=== PATIENT | female | born 1985 | race African-American/Black ===

== ENCOUNTER 2017-06-30 14:19 | Observation (INO) ==
[2017-06-30] MEDS ORDERED: Ondansetron 4 MG/2 ML VIAL IVP ONE (14:53)
[2017-06-30] MEDS ORDERED: *HR* HYDROmorphone (PF) 1 MG/ML SYRINGE IVP ONE ×2 (14:53→15:58)
--- NOTE | 2017-06-30 14:55 | Emergency Department Note ---
Disposition Clinical Impression: Phlegmon Disposition: Admitted As Inpatient Condition: Good General Adult HPI - General Chief complaint: ED Skin/Abscess/Foreign Body Stated complaint: vaginal abscess, N/V Time Seen by Provider: 06/30/17 14:40 Source: patient Limitations: no limitations - History of Present Illness Pain Scale: 5 - Related Data Home Medications Medication Instructions Recorded Confirmed Albuterol Sulfate [Ventolin Hfa] 2 puff IH Q4H PRN 06/30/17 06/30/17 Atorvastatin [Lipitor] 40 mg PO HS 06/30/17 06/30/17 Buprenorphine HCl/Naloxone HCl 2 each SL DAILY 06/30/17 06/30/17 [Suboxone 8 mg-2 mg Sl Film] Dulaglutide [Trulicity] 0.75 mg SQ TH 06/30/17 06/30/17 Duloxetine HCl [Cymbalta] 60 mg PO BID 06/30/17 06/30/17 Insulin Degludec [Tresiba 100 unit SQ HS 06/30/17 06/30/17 Flextouch U-100] Insulin LISPRO [HumaLOG] 0 unit SQ TIDWM 06/30/17 06/30/17 Lurasidone [Latuda] 20 mg PO DAILY 06/30/17 06/30/17 Metoprolol [Lopressor] 25 mg PO BID 06/30/17 06/30/17 Prazosin HCl [Minipress] 15 mg PO HS 06/30/17 06/30/17 Quetiapine Fumarate [Seroquel] 400 mg PO HS 06/30/17 06/30/17 hydrOXYzine pamoate [HydrOXYzine 25 mg PO QID 06/30/17 06/30/17 Pamoate] Allergies Allergy/AdvReac Type Severity Reaction Status Date / Time ketorolac [From Toradol] Allergy Hives Verified 06/30/17 14:37 morphine Allergy Hives Verified 06/30/17 14:37 sulfamethoxazole Allergy Hives Verified 06/30/17 14:37 [From Bactrim] tramadol Allergy Hives Verified 06/30/17 14:37 trimethoprim [From Bactrim] Allergy Hives Verified 06/30/17 14:37 trazodone AdvReac See Verified 06/30/17 14:37 Comments Past Medical History - Past Medical History Medical history: Reports: diabetes, hyperlipidemia, hypertension Psychiatric history: Reports: anxiety, bipolar, depression, PTSD RINK RAT history: Reports: spontaneous - Social History Smoking Status: Current every day smoker Smokeless Tobacco Status: No Alcohol use: Reports: none Drug use: Reports: none Physical Exam - General Limitations: no limitations General appearance: alert, in no apparent distress Course Vital Signs Temperature 99.1 F 06/30/17 14:35 Pulse Rate 118 06/30/17 14:35 Respiratory Rate 20 06/30/17 14:35 Blood Pressure 148/90 06/30/17 14:35 O2 Sat by Pulse Oximetry 93 06/30/17 14:35 Temperature 98.2 F 06/30/17 18:42 Pulse Rate 95 06/30/17 18:42 Respiratory Rate 16 06/30/17 18:42 Blood Pressure 143/82 06/30/17 18:42 O2 Sat by Pulse Oximetry 92 06/30/17 18:42 Oxygen Delivery Oxygen Delivery Room Air Medical Decision Making - Lab Data Result diagrams: 06/30/17 15:05 06/30/17 15:05 Lab Results 06/30/17 06/30/17 06/30/17 Range/Units 15:05 15:05 15:05 WBC 11.0 (4.3-11.1) K/mcL RBC 5.42 H (3.82-4.97) M/mcL Hgb 14.9 (11.5-15.4) g/dL Hct 44.2 (35.3-44.9) % MCV 81.5 L (83.0-100.0) fL MCH 27.5 L (28.0-33.3) pg MCHC 33.7 (31.6-35.5) g/dL RDW 13.6 (11.5-14.5) % Plt Count 276 (140-400) K/mcL MPV 9.5 (9.4-12.4) fL Immature Gran % 0.4 (0-4) % Seg Neutrophils % 68.1 % Lymphocytes % 21.1 % Monocytes % 6.6 % Eosinophils % 3.4 % Basophils % 0.4 % Neutrophils # 7.5 (1.6-8.9) K/mcL Lymphocytes # 2.3 (0.6-4.6) K/mcL Monocytes # 0.7 (0.0-1.3) K/mcL Eosinophils # 0.4 (0.0-0.6) K/mcL Basophils # 0.0 (0.0-0.2) K/mcL Immature Plt Fraction 3.9 (1.1-6.1) % PT 11.5 (9.4-12.1) Seconds INR 1.1 Sodium 133 L (136-145) mEq/L Potassium 3.8 (3.5-4.5) mEq/L Chloride 95 L (98-109) mEq/L Carbon Dioxide 27 (19-29) mEq/L BUN 6 L (7-20) mg/dL Creatinine 0.72 (0.57-1.11) mg/dL Est GFR ( Amer) > 60 (> 60) Est GFR (Non-Af Amer) > 60 (> 60) BUN/Creatinine Ratio 8 (6-26) Glucose 226 H (70-99) mg/dL Calculated Osmolality 281 (280-300) Calcium 9.3 (8.6-10.8) mg/dL Total Bilirubin 0.5 (0.2-1.2) mg/dL AST 26 (5-34) Units/L ALT 25 (0-55) Units/L Alkaline Phosphatase 89 (38-126) Units/L Serum Total Protein 6.8 (6.0-8.3) g/dL Albumin 3.1 L (3.5-5.0) g/dL Globulin 3.7 H (2.4-3.5) g/dL Albumin/Globulin Ratio 0.8 L (1.1-2.2) Serum , Qual (Negative) 06/30/17 Range/Units 15:05 WBC (4.3-11.1) K/mcL RBC (3.82-4.97) M/mcL Hgb (11.5-15.4) g/dL Hct (35.3-44.9) % MCV (83.0-100.0) fL MCH (28.0-33.3) pg MCHC (31.6-35.5) g/dL RDW (11.5-14.5) % Plt Count (140-400) K/mcL MPV (9.4-12.4) fL Immature Gran % (0-4) % Seg Neutrophils % % Lymphocytes % % Monocytes % % Eosinophils % % Basophils % % Neutrophils # (1.6-8.9) K/mcL Lymphocytes # (0.6-4.6) K/mcL Monocytes # (0.0-1.3) K/mcL Eosinophils # (0.0-0.6) K/mcL Basophils # (0.0-0.2) K/mcL Immature Plt Fraction (1.1-6.1) % PT (9.4-12.1) Seconds INR Sodium (136-145) mEq/L Potassium (3.5-4.5) mEq/L Chloride (98-109) mEq/L Carbon Dioxide (19-29) mEq/L BUN (7-20) mg/dL Creatinine (0.57-1.11) mg/dL Est GFR ( Amer) (> 60) Est GFR (Non-Af Amer) (> 60) BUN/Creatinine Ratio (6-26) Glucose (70-99) mg/dL Calculated Osmolality (280-300) Calcium (8.6-10.8) mg/dL Total Bilirubin (0.2-1.2) mg/dL AST (5-34) Units/L ALT (0-55) Units/L Alkaline Phosphatase (38-126) Units/L Serum Total Protein (6.0-8.3) g/dL Albumin (3.5-5.0) g/dL Globulin (2.4-3.5) g/dL Albumin/Globulin Ratio (1.1-2.2) Serum , Qual Negative (Negative) Attestation Statement - Attestation Attestation: I examined this patient and my medical decision-making was reviewed with the Resident Physician. I agree with the documented findings, disposition and treatment plan as described except to the extent set forth below. Face to face time provided Patient complains of left labial swelling. Spontaneous drainage. History of similar symptoms requiring incision and drainage in the past. Her left labia is swollen and tender. Serosanguineous drainage present. Limited transcutaneous bedside ultrasound by the resident physician under my supervision does not show any focal fluid collections. We will obtain a CT scan for further evaluation
--- NOTE | 2017-06-30 14:57 | Emergency Department Note ---
Disposition Clinical Impression: Phlegmon Disposition: Admitted As Inpatient Condition: Good Time of Disposition: 16:38 Skin/Abscess/FB HPI Chief complaint: ED Skin/Abscess/Foreign Body Stated complaint: vaginal abscess, N/V Time Seen by Provider: 06/30/17 14:40 Source: patient Limitations: no limitations Nursing Notes Reviewed: Yes Vital Signs Reviewed: Yes HPI Narrative: Ms. Coleman, a 31yo female, presents from home for evaluation of left labial swelling. She states this is an abscess; she has had this previously with drainage in the OR and in the ED. She noticed this 3 days ago and has had subjective fever with nausea. The swollen area spontaneously started draining today. 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 HTN, HLD. Depression, anxiety, bipolar. PSH: Cholecysteomy. Operative I&D of abscess. ROS: POS: subjective fever, nausea, left labial swelling with drainage Neg: vomiting, dysuria, abdominal pain, back pain, numbness, tingling, weakness. Home Medications Medication Instructions Recorded Confirmed Albuterol Sulfate [Ventolin Hfa] 2 puff IH Q4H PRN 06/30/17 06/30/17 Atorvastatin [Lipitor] 40 mg PO HS 06/30/17 06/30/17 Buprenorphine HCl/Naloxone HCl 2 each SL DAILY 06/30/17 06/30/17 [Suboxone 8 mg-2 mg Sl Film] Dulaglutide [Trulicity] 0.75 mg SQ TH 06/30/17 06/30/17 Duloxetine HCl [Cymbalta] 60 mg PO BID 06/30/17 06/30/17 Insulin Degludec [Tresiba 100 unit SQ HS 06/30/17 06/30/17 Flextouch U-100] Insulin LISPRO [HumaLOG] 0 unit SQ TIDWM 06/30/17 06/30/17 Lurasidone [Latuda] 20 mg PO DAILY 06/30/17 06/30/17 Metoprolol [Lopressor] 25 mg PO BID 06/30/17 06/30/17 Prazosin HCl [Minipress] 15 mg PO HS 06/30/17 06/30/17 Quetiapine Fumarate [Seroquel] 400 mg PO HS 06/30/17 06/30/17 hydrOXYzine pamoate [HydrOXYzine 25 mg PO QID 06/30/17 06/30/17 Pamoate] Allergies Allergy/AdvReac Type Severity Reaction Status Date / Time ketorolac [From Toradol] Allergy Hives Verified 06/30/17 14:37 morphine Allergy Hives Verified 06/30/17 14:37 sulfamethoxazole Allergy Hives Verified 06/30/17 14:37 [From Bactrim] tramadol Allergy Hives Verified 06/30/17 14:37 trimethoprim [From Bactrim] Allergy Hives Verified 06/30/17 14:37 trazodone AdvReac See Verified 06/30/17 14:37 Comments All systems ED: reviewed and negative except as stated. 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 HEENT: No facial asymmetry. Head is normocephalic and atraumatic. The midline. Cardiovascular: Heart regular rate and rhythm without clicks, rubs, gallops, or murmurs. No JVD. PMI nondisplaced. Skin: Warm, dry. Left labia is substantially enlarged and swollen versus right , erythematous, warm, exquisitely tender, blood draining from central lesion within the swollen area. Fluctuance beneath the skin of the left labia palpated approximately 3 cm x 4 cm. Psych: Patient's affect is appropriate for situation. - General Limitations: no limitations General appearance: alert, in no apparent distress Course Course Narrative: Bedside ultrasound performed - substantial cobblestoning of the swollen left labia with areas of subcu fluid. Will CT with IV contrast. Patient is SIRS (+) on intake tachycardia and tachypnea. No clinical suspicion whatsoever of sepsis. Lab work is unremarkable. CT pelvis with IV contrast read by myself and radiology as phlegmon of the left labia. As this is non-surgical, will forgo [employer] consult at this time. Will provide IV antibiotics. I discussed the patient with the admitting hospitalist , Dr. Carney, who agrees to accept the patient. Pelvis CT 06/30/17 14:53 IMPRESSION: Superficial inflammatory process involving the left labial region as indicated in the history. There is a small phlegmonous collection within the soft tissues with minimal adjacent skin thickening at the inferior margin. D/ / Olegario Blanca MD / Olegario Blanca MD Interpreting Provider: Olegario Blanca MD Vital Signs Temperature 99.1 F 06/30/17 14:35 Pulse Rate 118 06/30/17 14:35 Respiratory Rate 20 06/30/17 14:35 Blood Pressure 148/90 06/30/17 14:35 O2 Sat by Pulse Oximetry 93 06/30/17 14:35 Temperature 98.9 F 06/30/17 16:20 Pulse Rate 91 06/30/17 16:20 Respiratory Rate 20 06/30/17 16:20 Blood Pressure 137/88 06/30/17 16:20 O2 Sat by Pulse Oximetry 97 06/30/17 16:20 Oxygen Delivery Oxygen Delivery Room Air Skin/Abscess/Foreign Body - Lab Data Result diagrams: 06/30/17 15:05 06/30/17 15:05 Lab Results 06/30/17 06/30/17 06/30/17 Range/Units 15:05 15:05 15:05 WBC 11.0 (4.3-11.1) K/mcL RBC 5.42 H (3.82-4.97) M/mcL Hgb 14.9 (11.5-15.4) g/dL Hct 44.2 (35.3-44.9) % MCV 81.5 L (83.0-100.0) fL MCH 27.5 L (28.0-33.3) pg MCHC 33.7 (31.6-35.5) g/dL RDW 13.6 (11.5-14.5) % Plt Count 276 (140-400) K/mcL MPV 9.5 (9.4-12.4) fL Immature Gran % 0.4 (0-4) % Seg Neutrophils % 68.1 % Lymphocytes % 21.1 % Monocytes % 6.6 % Eosinophils % 3.4 % Basophils % 0.4 % Neutrophils # 7.5 (1.6-8.9) K/mcL Lymphocytes # 2.3 (0.6-4.6) K/mcL Monocytes # 0.7 (0.0-1.3) K/mcL Eosinophils # 0.4 (0.0-0.6) K/mcL Basophils # 0.0 (0.0-0.2) K/mcL Immature Plt Fraction 3.9 (1.1-6.1) % PT 11.5 (9.4-12.1) Seconds INR 1.1 Sodium 133 L (136-145) mEq/L Potassium 3.8 (3.5-4.5) mEq/L Chloride 95 L (98-109) mEq/L Carbon Dioxide 27 (19-29) mEq/L BUN 6 L (7-20) mg/dL Creatinine 0.72 (0.57-1.11) mg/dL Est GFR ( Amer) > 60 (> 60) Est GFR (Non-Af Amer) > 60 (> 60) BUN/Creatinine Ratio 8 (6-26) Glucose 226 H (70-99) mg/dL Calculated Osmolality 281 (280-300) Calcium 9.3 (8.6-10.8) mg/dL Total Bilirubin 0.5 (0.2-1.2) mg/dL AST 26 (5-34) Units/L ALT 25 (0-55) Units/L Alkaline Phosphatase 89 (38-126) Units/L Serum Total Protein 6.8 (6.0-8.3) g/dL Albumin 3.1 L (3.5-5.0) g/dL Globulin 3.7 H (2.4-3.5) g/dL Albumin/Globulin Ratio 0.8 L (1.1-2.2) Serum , Qual (Negative) 06/30/17 Range/Units 15:05 WBC (4.3-11.1) K/mcL RBC (3.82-4.97) M/mcL Hgb (11.5-15.4) g/dL Hct (35.3-44.9) % MCV (83.0-100.0) fL MCH (28.0-33.3) pg MCHC (31.6-35.5) g/dL RDW (11.5-14.5) % Plt Count (140-400) K/mcL MPV (9.4-12.4) fL Immature Gran % (0-4) % Seg Neutrophils % % Lymphocytes % % Monocytes % % Eosinophils % % Basophils % % Neutrophils # (1.6-8.9) K/mcL Lymphocytes # (0.6-4.6) K/mcL Monocytes # (0.0-1.3) K/mcL Eosinophils # (0.0-0.6) K/mcL Basophils # (0.0-0.2) K/mcL Immature Plt Fraction (1.1-6.1) % PT (9.4-12.1) Seconds INR Sodium (136-145) mEq/L Potassium (3.5-4.5) mEq/L Chloride (98-109) mEq/L Carbon Dioxide (19-29) mEq/L BUN (7-20) mg/dL Creatinine (0.57-1.11) mg/dL Est GFR ( Amer) (> 60) Est GFR (Non-Af Amer) (> 60) BUN/Creatinine Ratio (6-26) Glucose (70-99) mg/dL Calculated Osmolality (280-300) Calcium (8.6-10.8) mg/dL Total Bilirubin (0.2-1.2) mg/dL AST (5-34) Units/L ALT (0-55) Units/L Alkaline Phosphatase (38-126) Units/L Serum Total Protein (6.0-8.3) g/dL Albumin (3.5-5.0) g/dL Globulin (2.4-3.5) g/dL Albumin/Globulin Ratio (1.1-2.2) Serum , Qual Negative (Negative)
[2017-06-30 15:11] LABS: Basophils % 0.4 %; Eosinophils # 0.4 K/mcL (0.0-0.6); Eosinophils % 3.4 %; Hematocrit 44.2 % (35.3-44.9); Hemoglobin 14.9 g/dL (11.5-15.4); Immature Granulocytes % 0.4 % (0-4); Immature Platelets 3.9 % (1.1-6.1); Lymphocytes # 2.3 K/mcL (0.6-4.6); Lymphocytes % 21.1 %; Mean Corpuscular HGB Conc 33.7 g/dL (31.6-35.5); Mean Corpuscular Hemoglobin 27.5 pg (28.0-33.3); Mean Corpuscular Volume 81.5 fL (83.0-100.0); Mean Platelet Volume 9.5 fL (9.4-12.4); Monocytes # 0.7 K/mcL (0.0-1.3); Monocytes % 6.6 %; Neutrophils # 7.5 K/mcL (1.6-8.9); Platelet Count 276 K/mcL (140-400); Red Blood Count 5.42 M/mcL (3.82-4.97); Red Cell Distribution Width 13.6 % (11.5-14.5); Segmented Neutrophils % 68.1 %
[2017-06-30 15:15] LABS: INR 1.1; Prothrombin Time 11.5 Seconds (9.4-12.1)
[2017-06-30 15:25] LABS: Alanine Aminotransferase 25 Units/L (0-55); Albumin 3.1 g/dL (3.5-5.0); Albumin/Globulin Ratio 0.8 (1.1-2.2); Alkaline Phosphatase 89 Units/L (38-126); Aspartate Amino Transferase 26 Units/L (5-34); BUN/Creatinine Ratio 8 (6-26); Bilirubin,Total 0.5 mg/dL (0.2-1.2); Blood Urea Nitrogen 6 mg/dL (7-20); Calcium 9.3 mg/dL (8.6-10.8); Carbon Dioxide 27 mEq/L (19-29); Chloride 95 mEq/L (98-109); Globulin 3.7 g/dL (2.4-3.5); Glucose 226 mg/dL (70-99); Osmolality,Calculated 281 (280-300); Potassium 3.8 mEq/L (3.5-4.5); Sodium 133 mEq/L (136-145); Total Protein 6.8 g/dL (6.0-8.3); eGFR For African Americans > 60 (> 60); eGFR For Non-African Americans > 60 (> 60)
[2017-06-30] MEDS ORDERED: Vancomycin 1,750 MG in D5% in Water 500 ML IVPB STA (15:54)
[2017-06-30] MEDS ORDERED: Cefepime HCl 2,000 MG in D5% in Water (Mini-Bag+) 100 ML IVPB STA (15:55)
[2017-06-30] MEDS ORDERED: MetroNIDAZOLE 500 MG/100 ML 500 MG/100 ML BAG IVPB ONE (15:55)
[2017-06-30] MEDS ORDERED: Cefepime HCl 2,000 MG in Water for inj. (sterile) 20 ML IVP ONE (16:49)
[2017-06-30] MEDS ORDERED: Vancomycin 2,000 MG in D5% in Water 250 ML IVPB SCH (17:00)
[2017-06-30] MEDS ORDERED: Cefepime HCl 1,000 MG in D5% in Water (Mini-Bag+) 100 ML IVPB SCH (18:00)
[2017-06-30] MEDS: Vancomycin 2,000 MG in D5% in Water 500 ML IVPB SCH (18:40)
--- NOTE | 2017-06-30 19:12 | Internal Med History&Physical ---
Date of Encounter: 06/30/17 Time of Encounter: 19:09 Assessment and Plan (1) Labial lesion Current visit: Yes Status: Acute Patient reported a left labial lesion approximately [address] noted focal phlegmon measuring 3.4 x 2.4 cm. 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 Does not appear to need I&D at this time. Patient does not appear toxic no elevated white count. Start cefepime 1 g IV every 12 and metronidazole 500 mg every 8 hours Dilaudid 1 mg IV push every 4 hours for pain Wound cultures CRP, hemoglobin A1c, CBC and BMP in the morning (2) Phlegmon Current visit: Yes Status: Acute see plan above. Internal Medicine - H&P: HPI Chief complaint: left labial swelling Admitted From: Home Plans for Post Hospital Care: Home History of present illness: Ms. Garcia is a 31 year old female with a PMH of diabetes hypertension and HLD. Presents today to [facility] for recurring left labial swelling. She reports approximately 1 week ago her left labia began to swell and become tender. She is reporting spontaneous drainage. She has a history of left labial swelling with MRSA infection and was treated at [facility] in the past. CT of the abdomen and pelvis revealed focal phlegmon measuring 3.4 cm x 2.4 cm with induration of the surrounding soft tissue. She was to fevers denies chills, fatigue, truncal rash or night sweats. She reports she has a monogamous long- term relationship. Past Med Surg Social Fam HX - Past Medical History Medical history: diabetes, hyperlipidemia, hypertension Psychiatric history: anxiety, bipolar, depression, PTSD - Past Surgical History Surgical History: colectomy - Social History Smoking Status: Current every day smoker Packs per day: 1 Smokeless Tobacco Status: No Alcohol use: none Drug use: none - Family History Father Hx Family Endocrine Disorder: Yes (diabetes) Mother Living Status: Age at : 62 Cause of : COPD Hx Family Respiratory Disorders: Yes (COPD) Hx Family Neurologic Disorders: Yes (Dementia) Hx Family Psychosocial Disorders: Yes (Anxiety, Depression) Internal Medicine - H&P: Meds Albuterol Sulfate [Ventolin Hfa] 2 puff IH Q4H PRN 06/30/17 [History] Atorvastatin [Lipitor] 40 mg PO HS 06/30/17 [History] Buprenorphine HCl/Naloxone HCl [Suboxone 8 mg-2 mg Sl Film] 2 each SL DAILY 01/09 [History] Dulaglutide [Trulicity] 0.75 mg SQ TH 06/30/17 [History] Duloxetine HCl [Cymbalta] 60 mg PO BID 06/30/17 [History] Insulin Degludec [Tresiba Flextouch U-100] 100 unit SQ HS 06/30/17 [History] Insulin LISPRO [HumaLOG] 0 unit SQ TIDWM 06/30/17 [History] Lurasidone [Latuda] 20 mg PO DAILY 06/30/17 [History] Metoprolol [Lopressor] 25 mg PO BID 06/30/17 [History] Prazosin HCl [Minipress] 15 mg PO HS 06/30/17 [History] Quetiapine Fumarate [Seroquel] 400 mg PO HS 06/30/17 [History] hydrOXYzine pamoate [HydrOXYzine Pamoate] 25 mg PO QID 06/30/17 [History] 3 Allergy/AdvReac Type Severity Reaction Status Date / Time ketorolac [From Toradol] Allergy Hives Verified 06/30/17 14:37 morphine Allergy Hives Verified 06/30/17 14:37 sulfamethoxazole Allergy Hives Verified 06/30/17 14:37 [From Bactrim] tramadol Allergy Hives Verified 06/30/17 14:37 trimethoprim [From Bactrim] Allergy Hives Verified 06/30/17 14:37 trazodone AdvReac See Verified 06/30/17 14:37 Comments All Systems PM: A 10-system review of systems was performed and is negative for pertinent findings except as documented above in the HPI. - Constitutional Constitutional: no chills, no fatigue, no fever(s), no night sweats, no weakness , no weight loss - EENT Eyes: no change in vision, no discharge, no pain, no photophobia Ears: no ear discharge, no ear pain, no tinnitus Nose, mouth and throat: no dysphagia, no nasal discharge, no neck pain, no sore throat - Cardiovascular Cardiovascular ROS IM: no chest pain, no diaphoresis, no dyspnea, no lightheadedness, no palpitations, no syncope - Respiratory Respiratory: no cough, no dyspnea, no wheezing, no excessive phlegm production - Gastrointestinal Gastrointestinal: no abdominal pain, no diarrhea, no hematemesis, no hematochezia, no melena, no nausea, no vomiting - Genitourinary Genitourinary: as per HPI, genital lesions, pelvic pain - Musculoskeletal Musculoskeletal ROS IM: no numbness, no tingling - Integumentary Integumentary IM: no rash, no unusual bruising - Neurological Neurological ROS: no confusion, no convulsions, no focal weakness, no numbness, no tingling, no tremor(s) - Hematologic/Lymphatic Hematologic/Lymphatic: no easy bruising - Constitutional Vitals: Temp Pulse Resp BP Pulse Ox 98.2 F 95 16 143/82 92 06/30/17 18:42 06/30/17 18:42 06/30/17 18:42 06/30/17 18:42 06/30/17 18:42 - Neck Neck exam general surgery: Present: supple, trachea midline. Absent: lymphadenopathy - Respiratory Respiratory exam: Present: CTAB. Absent: accessory muscle use, rales, rhonchi, wheezes - Cardiovascular Cardiovascular exam: Present: RRR, +S1, +S2. Absent: diastolic murmur, gallop, rubs, systolic murmur - GI/Abdominal GI/Abdominal exam: Present: normal bowel sounds, soft, no peritoneal signs. Absent: distended, tenderness - External exam: Present: lesions, swelling Additional comments: Patient has a lesion on left lateral labia with clear drainage. Lesion superficial skin loss, mildly erythematous and tender to palpation - Extremities Exam Extremities exam: Present: warm, radial pulses palpable and symmetrical. Absent : calf tenderness, cyanotic, pedal edema Internal Med - H&P Results - Labs CBC & Chem 7: 06/30/17 15:05 06/30/17 15:05 - Diagnostic Studies CT scan - abdomen Status: image reviewed by me Additional comments: CT of abdomen and pelvis reveals left labial wound measuring 3.42.4 cm. Also noted is induration and surrounding soft tissue
[2017-06-30] MEDS ORDERED: INSULIN DEGLUDEC 100 UNIT SQ SCH (21:00)
[2017-06-30] MEDS: *HR* HYDROmorphone (PF) 1 MG/ML SYRINGE IVP PRN (21:08)
[2017-06-30] MEDS: *HR* Heparin 5,000 UNIT/ML VIAL SQ SCH (21:08)
[2017-06-30] MEDS ORDERED: Insulin LISPRO 300 UNITS/3 ML VIAL SQ SCH (22:00)
[2017-06-30] MEDS: Insulin LISPRO 300 UNITS/3 ML VIAL SQ SCH (22:43)
[2017-06-30] MEDS ORDERED: Ibuprofen 400 MG TABLET PO PRN (23:51)
[2017-07-01] MEDS: MetroNIDAZOLE 500 MG/100 ML 500 MG/100 ML BAG IVPB SCH ×3 (00:23→15:34)
[2017-07-01] MEDS: Insulin LISPRO 300 UNITS/3 ML VIAL SQ SCH ×5 (00:45→20:52)
[2017-07-01] MEDS: *HR* HYDROmorphone (PF) 1 MG/ML SYRINGE IVP PRN ×5 (01:34→20:39)
[2017-07-01 04:06] LABS: Basophils % 0.3 %; Eosinophils # 0.4 K/mcL (0.0-0.6); Eosinophils % 3.7 %; Hematocrit 43.3 % (35.3-44.9); Hemoglobin 14.3 g/dL (11.5-15.4); Immature Granulocytes % 0.2 % (0-4); Immature Platelets 4.6 % (1.1-6.1); Lymphocytes # 2.5 K/mcL (0.6-4.6); Lymphocytes % 25.1 %; Mean Corpuscular Volume 81.7 fL (83.0-100.0); Mean Platelet Volume 10.7 fL (9.4-12.4); Monocytes # 0.8 K/mcL (0.0-1.3); Monocytes % 8.2 %; Neutrophils # 6.3 K/mcL (1.6-8.9); Platelet Count 250 K/mcL (140-400); Red Cell Distribution Width 13.9 % (11.5-14.5); Segmented Neutrophils % 62.5 %
[2017-07-01 04:17] LABS: BUN/Creatinine Ratio 11 (6-26); Blood Urea Nitrogen 7 mg/dL (7-20); C-Reactive Protein 39 mg/L (Less than 5); Carbon Dioxide 22 mEq/L (19-29); Chloride 98 mEq/L (98-109); Glucose 229 mg/dL (70-99); Magnesium 1.3 mg/dL (1.6-2.6); Osmolality,Calculated 281 (280-300); Sodium 133 mEq/L (136-145); eGFR For African Americans > 60 (> 60); eGFR For Non-African Americans > 60 (> 60)
[2017-07-01 04:19] LABS: Potassium 4.1 mEq/L (3.5-4.5)
[2017-07-01 04:23] LABS: Hemoglobin A1C 11.2 %
[2017-07-01] MEDS: Vancomycin 2,000 MG in D5% in Water 500 ML IVPB SCH ×2 (04:37→16:38)
[2017-07-01] MEDS: Cefepime HCl 1,000 MG in Water for inj. (sterile) 10 ML IVP SCH ×2 (06:35→20:40)
[2017-07-01] MEDS: *HR* Heparin 5,000 UNIT/ML VIAL SQ SCH ×3 (06:35→20:39)
[2017-07-01] MEDS: Famotidine 20 MG/2 ML VIAL IVP SCH (08:41)
[2017-07-01] MEDS ORDERED: Lidocaine 1% 20 ML MDV INFILT ONE (14:37)
--- NOTE | 2017-07-01 14:55 | General Surgery Consult Note ---
<Kristen Adames Efrain - Last Filed: 07/01/17 14:49> Date of Encounter: 07/01/17 Time of Encounter: 14:45 Assessment and Plan (1) Left genital labial abscess Current Visit: Yes Status: Acute Plan for I&D of left labial abscess in the next 24 hours IV antibiotics- currently on cefepime, vancomycin, flagyl Cultures- gram stain, aerobic, anaerobic cultures Supportive care and pain control Daily wound care (2) Morbid obesity Current Visit: Yes Status: Chronic (3) Diabetes mellitus type 2, uncontrolled, with complications Current Visit: Yes Status: Chronic HgbA1C is 11.2 Management per hospitalist Continue insulin treatment at this time Qualifiers: Diabetes mellitus mcfp insulin use: unspecified mcfp insulin use status Qualified Code(s): E11.8 - Type 2 diabetes mellitus with unspecified complications; E11.65 - Type 2 diabetes mellitus with hyperglycemia; E11.65 - Type 2 diabetes mellitus with hyperglycemia; E11.65 - Type 2 diabetes mellitus with hyperglycemia; E11.65 - Type 2 diabetes mellitus with hyperglycemia (4) Tobacco abuse Current Visit: Yes Status: Chronic Smoking cessation education (5) GERD (gastroesophageal reflux disease) Current Visit: Yes Status: Chronic PPI therapy daily Qualifiers: Esophagitis presence: esophagitis presence not specified Qualified Code(s) : K21.9 - Gastro-esophageal reflux disease without esophagitis History of Present Illness Consult date: 07/01/17 Reason for consult: other Requesting physician: Duyen Harrison History of present illness: Ms. Coleman is a morbidly obese patient who presented to the ED with complaints of a left labial abscess. She states that the area became tender 1 week ago. She states that it has continued to progress and swell. She reports increasing tenderness. She has attempted warm compresses with no relief. She has not had any antibiotics. She states that she has had multiple areas similar to this in the past. They have tested positive for MRSA in the past. She denies any fevers or chills. She has had a CT scan which shows evidence of a left labial abscess and cellulitis. We have been asked to see and evaluate the patient for recommendations. Past Med Surg Social Fam HX - Past Medical History Source: patient, old records reviewed Medical history: diabetes, GERD, hyperlipidemia, hypertension, other (morbid obesity; MRSA; chronic pancreatitis, JENY, PCOS, DDD) Psychiatric history: anxiety, bipolar, depression, PTSD - Past Surgical History Surgical History: cholecystectomy, orthopedic, other (right ankle surgery), other (liver biopsy, I&D of previous abscesses, T&A, ear tubes) - Social History Smoking Status: Current every day smoker Packs per day: 1 Smokeless Tobacco Status: No Alcohol use: none Drug use: none Current living situation: Home - Independent Activity Level: Independent ambulation - Family History Father Hx Family Endocrine Disorder: Yes (diabetes) Mother Living Status: Age at : 62 Cause of : COPD Hx Family Respiratory Disorders: Yes (COPD) Hx Family Neurologic Disorders: Yes (Dementia) Hx Family Psychosocial Disorders: Yes (Anxiety, Depression) Medications and Allergies Albuterol Sulfate [Ventolin Hfa] 2 puff IH Q4H PRN 06/30/17 [History] Atorvastatin [Lipitor] 40 mg PO HS 06/30/17 [History] Buprenorphine HCl/Naloxone HCl [Suboxone 8 mg-2 mg Sl Film] 2 each SL DAILY 01/09 [History] Dulaglutide [Trulicity] 0.75 mg SQ TH 06/30/17 [History] Duloxetine HCl [Cymbalta] 60 mg PO BID 06/30/17 [History] Insulin Degludec [Tresiba Flextouch U-100] 100 unit SQ HS 06/30/17 [History] Insulin LISPRO [HumaLOG] 0 unit SQ TIDWM 06/30/17 [History] Lurasidone [Latuda] 20 mg PO DAILY 06/30/17 [History] Metoprolol [Lopressor] 25 mg PO BID 06/30/17 [History] Prazosin HCl [Minipress] 15 mg PO HS 06/30/17 [History] Quetiapine Fumarate [Seroquel] 400 mg PO HS 06/30/17 [History] hydrOXYzine pamoate [HydrOXYzine Pamoate] 25 mg PO QID 06/30/17 [History] 3 Allergy/AdvReac Type Severity Reaction Status Date / Time ketorolac [From Toradol] Allergy Hives Verified 06/30/17 14:37 morphine Allergy Hives Verified 06/30/17 14:37 sulfamethoxazole Allergy Hives Verified 06/30/17 14:37 [From Bactrim] tramadol Allergy Hives Verified 06/30/17 14:37 trimethoprim [From Bactrim] Allergy Hives Verified 06/30/17 14:37 trazodone AdvReac See Verified 06/30/17 14:37 Comments Review of Systems All systems PM: reviewed and no additional remarkable complaints except as stated (focused and as located in the HPI) All systems PM: A 10-system review of systems was performed and is negative for pertinent findings except as documented above in the HPI. General Surgery Exam Initial Vital Signs Temp Pulse Resp BP Pulse Ox 99.1 F 118 20 148/90 93 06/30/17 14:35 06/30/17 14:35 06/30/17 14:35 06/30/17 14:35 06/30/17 14:35 - General physical appearance well developed, well nourished, no distress, chronically ill, obese (morbidly with BMI of 69) - Eyes normal ocular movement - ENT normal mucosa, atraumatic, normocephalic - Neck trachea midline - Respiratory normal respiratory effort, clear to auscultation - Cardiovascular Cardiovascular exam: Present: RRR - Abdomen Abdomen general surgery: Present: bowel sounds present, soft, non tender - Genitourinary Present: other (left labial abscess and cellulitis noted, no active drainage, tender to examination) - Integumentary Integumentary general surgery: Present: warm and dry - Neurologic Present: CN 2-12 grossly intact - Psychiatric Psychiatric general surgery: Present: appropriate, oriented to person, oriented to place, oriented to time, speech is normal, memory intact Exam Initial Vital Signs Temp Pulse Resp BP Pulse Ox 99.1 F 118 20 148/90 93 06/30/17 14:35 06/30/17 14:35 06/30/17 14:35 06/30/17 14:35 06/30/17 14:35 Results - Labs 07/01/17 03:50 07/01/17 03:50 Abnormal lab results RBC 5.30 M/mcL (3.82-4.97) H 07/01/17 03:50 MCV 81.7 fL (83.0-100.0) L 07/01/17 03:50 MCH 27.0 pg (28.0-33.3) L 07/01/17 03:50 Sodium 133 mEq/L (136-145) L 07/01/17 03:50 Glucose 229 mg/dL (70-99) H 07/01/17 03:50 POC Glucose 193 (58-89) H 06/30/17 22:40 Hemoglobin A1c 11.2 % (-5.6) H 07/01/17 03:50 Magnesium 1.3 mg/dL (1.6-2.6) L 07/01/17 03:50 C-Reactive Protein 39 mg/L (Less than 5) H 07/01/17 03:50 Albumin 3.1 g/dL (3.5-5.0) L 06/30/17 15:05 Globulin 3.7 g/dL (2.4-3.5) H 06/30/17 15:05 Albumin/Globulin Ratio 0.8 (1.1-2.2) L 06/30/17 15:05 Diabetes panel 07/01/17 07/01/17 Range/Units 03:50 03:50 Sodium 133 L (136-145) mEq/L Potassium 4.1 (3.5-4.5) mEq/L Chloride 98 (98-109) mEq/L Carbon Dioxide 22 (19-29) mEq/L BUN 7 (7-20) mg/dL Creatinine 0.66 (0.57-1.11) mg/dL Glucose 229 H (70-99) mg/dL Hemoglobin A1c 11.2 H ( - 5.6) % Calcium 9.0 (8.6-10.8) mg/dL Calcium panel 07/01/17 Range/Units 03:50 Calcium 9.0 (8.6-10.8) mg/dL Pituitary panel 07/01/17 Range/Units 03:50 Sodium 133 L (136-145) mEq/L Potassium 4.1 (3.5-4.5) mEq/L Chloride 98 (98-109) mEq/L Carbon Dioxide 22 (19-29) mEq/L BUN 7 (7-20) mg/dL Creatinine 0.66 (0.57-1.11) mg/dL Glucose 229 H (70-99) mg/dL Calcium 9.0 (8.6-10.8) mg/dL Adrenal panel 07/01/17 Range/Units 03:50 Sodium 133 L (136-145) mEq/L Potassium 4.1 (3.5-4.5) mEq/L Chloride 98 (98-109) mEq/L Carbon Dioxide 22 (19-29) mEq/L BUN 7 (7-20) mg/dL Creatinine 0.66 (0.57-1.11) mg/dL Glucose 229 H (70-99) mg/dL Calcium 9.0 (8.6-10.8) mg/dL All other labs normal. - Imaging Additional studies: Pelvis CT 06/30/17 14:53 IMPRESSION: Superficial inflammatory process involving the left labial region as indicated in the history. There is a small phlegmonous collection within the soft tissues with minimal adjacent skin thickening at the inferior margin. D/ / Olegario Blanca MD / Olegario Blanca MD Interpreting Provider: Olegario Blanca MD Consult Discharge Plan - Plan Referrals: Charlie Dennis DO [Primary Care Provider] - - Attending Attestation For this encounter, I have reviewed the MEDICAL RECEPTIONIST MEDICAL ASSISTANT or PA documentation, treatment plan, and medical decision making; and I have had face to face time with this patient. <Ever Winkler - Last Filed: 07/01/17 17:37> Date of Encounter: 07/01/17 Review of Systems All systems PM: A 10-system review of systems was performed and is negative for pertinent findings except as documented above in the HPI. General Surgery Exam Initial Vital Signs Temp Pulse Resp BP Pulse Ox 99.1 F 118 20 148/90 93 06/30/17 14:35 06/30/17 14:35 06/30/17 14:35 06/30/17 14:35 06/30/17 14:35 Exam Initial Vital Signs Temp Pulse Resp BP Pulse Ox 99.1 F 118 20 148/90 93 06/30/17 14:35 06/30/17 14:35 06/30/17 14:35 06/30/17 14:35 06/30/17 14:35 Results - Labs 07/01/17 03:50 07/01/17 03:50 Abnormal lab results RBC 5.30 M/mcL (3.82-4.97) H 07/01/17 03:50 MCV 81.7 fL (83.0-100.0) L 07/01/17 03:50 MCH 27.0 pg (28.0-33.3) L 07/01/17 03:50 Sodium 133 mEq/L (136-145) L 07/01/17 03:50 Glucose 229 mg/dL (70-99) H 07/01/17 03:50 POC Glucose 193 (58-89) H 06/30/17 22:40 Hemoglobin A1c 11.2 % (-5.6) H 07/01/17 03:50 Magnesium 1.3 mg/dL (1.6-2.6) L 07/01/17 03:50 C-Reactive Protein 39 mg/L (Less than 5) H 07/01/17 03:50 Albumin 3.1 g/dL (3.5-5.0) L 06/30/17 15:05 Globulin 3.7 g/dL (2.4-3.5) H 06/30/17 15:05 Albumin/Globulin Ratio 0.8 (1.1-2.2) L 06/30/17 15:05 Diabetes panel 07/01/17 07/01/17 Range/Units 03:50 03:50 Sodium 133 L (136-145) mEq/L Potassium 4.1 (3.5-4.5) mEq/L Chloride 98 (98-109) mEq/L Carbon Dioxide 22 (19-29) mEq/L BUN 7 (7-20) mg/dL Creatinine 0.66 (0.57-1.11) mg/dL Glucose 229 H (70-99) mg/dL Hemoglobin A1c 11.2 H ( - 5.6) % Calcium 9.0 (8.6-10.8) mg/dL Calcium panel 07/01/17 Range/Units 03:50 Calcium 9.0 (8.6-10.8) mg/dL Pituitary panel 07/01/17 Range/Units 03:50 Sodium 133 L (136-145) mEq/L Potassium 4.1 (3.5-4.5) mEq/L Chloride 98 (98-109) mEq/L Carbon Dioxide 22 (19-29) mEq/L BUN 7 (7-20) mg/dL Creatinine 0.66 (0.57-1.11) mg/dL Glucose 229 H (70-99) mg/dL Calcium 9.0 (8.6-10.8) mg/dL Adrenal panel 07/01/17 Range/Units 03:50 Sodium 133 L (136-145) mEq/L Potassium 4.1 (3.5-4.5) mEq/L Chloride 98 (98-109) mEq/L Carbon Dioxide 22 (19-29) mEq/L BUN 7 (7-20) mg/dL Creatinine 0.66 (0.57-1.11) mg/dL Glucose 229 H (70-99) mg/dL Calcium 9.0 (8.6-10.8) mg/dL All other labs normal. - Attending Attestation The patient is seen and evaluated. Care plan was discussed the clinical nurse practitioner. Incision and drainage is performed on the labia. A large amount of material is drained. Differential diagnosis includes recurrent Bartholin's cyst versus recurrent abscess. Ever Winkler MD FACS
[2017-07-01] MEDS ORDERED: *HR* HYDROmorphone (PF) 1 MG/ML SYRINGE IVP ONE (16:23)
--- NOTE | 2017-07-01 16:24 | General Surgery Procedure Note ---
Date of procedure: 07/01/17 Pre-op diagnosis: Left labial abscess Post-op diagnosis: same Procedure: After informed consent was obtained and timeout completed, the patient's left labia was prepped and draped. The area was localized with 15 ML's of 1% lidocaine. After achieving appropriate localization, a 3 cm incision was made over the most fluctuaant area using a size 11 blade. There was immediate return of purulent drainage. The cavity was further opened and decompressed using hemostats. Gram stain, aerobic, and anaerobic cultures were obtained. The cavity was flushed using 20 MLs of saline and then packed with 1/4 inch iodoform gauze and covered with a dry dressing. Complications: None Anesthesia: local (2% lidocaine) Surgeon: Kristen Adames Estimated blood loss (cc): 2 Pathology: other (Gram stain, aerobic culture, anaerobic cultures) Condition: stable Disposition: no change
--- NOTE | 2017-07-01 16:35 | Internal Med Progress Note ---
Date of Encounter: 07/01/17 Time of Encounter: 16:31 - Assessment and plan (1) Left genital labial abscess Current Visit: Yes Status: Acute Assessment and plan: Kaitlyn Coleman is a 81-year-old female with past medical history morbid obesity, diabetes and recurrent labial abscess who presented to [facility] on 06/30/2017 with complaints of left labia pain and swelling. She was found to have recurrent abscess and was placed in observation status for other workup and treatment. 1. Left labial abscess: Recurrent. Pelvis CT with small left labail phlegmonous collection. WBC 10K, afebrile. S/p I&D on 07/01/17 per General Surgery. Cx's pending. Continue IV Vanco, Flagyl, cefepime. Narrow according to cultures. Local wound care 2. Uncontrolled diabetes: Hgb A1c 11.2%. Secondary to obesity and dietary compliance. SSI. Monitor blood sugar and titrate PRN 3. HTN: per hx. BP controlled. Continue home BP medication. Monitor BP and titrate PRN 4. DVT prophylaxis: Heparin (2) Diabetes mellitus type 2, uncontrolled, with complications Current Visit: Yes Status: Chronic Qualifiers: Diabetes mellitus overlock elastic attacher insulin use: unspecified overlock elastic attacher insulin use status Qualified Code(s): E11.8 - Type 2 diabetes mellitus with unspecified complications; E11.65 - Type 2 diabetes mellitus with hyperglycemia; E11.65 - Type 2 diabetes mellitus with hyperglycemia; E11.65 - Type 2 diabetes mellitus with hyperglycemia; E11.65 - Type 2 diabetes mellitus with hyperglycemia (3) Morbid obesity Current Visit: Yes Status: Chronic - Subjective Interval history: Seen and examined at bedside. Patient is new to me, information obtained from chart review and patient report. Patient significant amount pain, says she feels like abscess to be lanced. She does have history of labialis of the past requiring long-term IV ATB. - Constitutional Vitals: Temp Pulse Resp BP Pulse Ox 98.3 F 89 16 121/80 96 07/01/17 16:27 07/01/17 16:27 07/01/17 16:27 07/01/17 16:27 07/01/17 16:27 General appearance: Present: A&O X 3, morbidly obese - Head Head exam: Present: atraumatic, normocephalic - Eye Eye exam: Present: PERRL, conjuntiva pink, sclera anicteric Pupils: Present: PERRL - Neck Neck exam general surgery: Present: supple, trachea midline. Absent: lymphadenopathy - Respiratory Respiratory exam: Present: CTAB. Absent: accessory muscle use, rales, rhonchi, wheezes - Cardiovascular Cardiovascular exam: Present: RRR, +S1, +S2. Absent: diastolic murmur, gallop, rubs, systolic murmur - GI/Abdominal GI/Abdominal exam: Present: normal bowel sounds, soft, no peritoneal signs. Absent: distended, tenderness - Expanded Exam Female exam: Present: vaginal laceration (Left labial swelling with distal area of drainage) - Extremities Exam Extremities exam: Present: warm, radial pulses palpable and symmetrical. Absent : calf tenderness, cyanotic, pedal edema - Neurological Exam Neurological exam: Present: CN II-XII intact, oriented X3, no focal deficits. Absent: pronater drift, facial droop, speech deficit - Skin Skin exam: Present: dry, intact Internal Medicine: Result - Labs CBC & Chem 7: 07/01/17 03:50 07/01/17 03:50 Labs: Short CBC 07/01/17 Range/Units 03:50 WBC 10.1 (4.3-11.1) K/mcL Hgb 14.3 (11.5-15.4) g/dL Hct 43.3 (35.3-44.9) % Plt Count 250 (140-400) K/mcL Neutrophils # 6.3 (1.6-8.9) K/mcL BMP 07/01/17 03:50 Sodium 133 L Potassium 4.1 Chloride 98 Carbon Dioxide 22 BUN 7 Creatinine 0.66 Glucose 229 H Calcium 9.0 - ABG Interpretation ABG results: PT/INR, D-dimer PT 11.5 Seconds (9.4-12.1) 06/30/17 15:05 Consult Discharge Plan - Plan Referrals: Charlie Dennis DO [Primary Care Provider] -
--- NOTE | 2017-07-01 17:59 | Event Note ---
Date of Encounter: 07/01/17 Time of Encounter: 17:54
[2017-07-02] MEDS: MetroNIDAZOLE 500 MG/100 ML 500 MG/100 ML BAG IVPB SCH ×2 (01:13→10:35)
[2017-07-02] MEDS: *HR* HYDROmorphone (PF) 1 MG/ML SYRINGE IVP PRN ×2 (01:14→05:40)
[2017-07-02 04:13] LABS: Hematocrit 43.3 % (35.3-44.9); Hemoglobin 13.9 g/dL (11.5-15.4); Mean Corpuscular HGB Conc 32.1 g/dL (31.6-35.5); Mean Corpuscular Hemoglobin 26.7 pg (28.0-33.3); Mean Corpuscular Volume 83.3 fL (83.0-100.0); Mean Platelet Volume 9.9 fL (9.4-12.4); Platelet Count 262 K/mcL (140-400); Red Cell Distribution Width 13.4 % (11.5-14.5)
[2017-07-02 04:30] LABS: BUN/Creatinine Ratio 13 (6-26); Blood Urea Nitrogen 9 mg/dL (7-20); Calcium 8.9 mg/dL (8.6-10.8); Carbon Dioxide 28 mEq/L (19-29); Chloride 98 mEq/L (98-109); Glucose 225 mg/dL (70-99); Osmolality,Calculated 288 (280-300); Potassium 4.1 mEq/L (3.5-4.5); Sodium 136 mEq/L (136-145); eGFR For African Americans > 60 (> 60); eGFR For Non-African Americans > 60 (> 60)
[2017-07-02] MEDS: Cefepime HCl 1,000 MG in Water for inj. (sterile) 10 ML IVP SCH (05:40)
[2017-07-02] MEDS: *HR* Heparin 5,000 UNIT/ML VIAL SQ SCH (05:41)
--- NOTE | 2017-07-02 09:13 | Discharge Summary ---
<Kristen Adames - Last Filed: 07/02/17 11:25> Date of Encounter: 07/02/17 - Discharge Diagnosis (1) Left genital labial abscess Status: Acute (2) Morbid obesity Status: Chronic (3) Diabetes mellitus type 2, uncontrolled, with complications Status: Chronic Qualifiers: Diabetes mellitus shelter insulin use: unspecified shelter insulin use status Qualified Code(s): E11.8 - Type 2 diabetes mellitus with unspecified complications; E11.65 - Type 2 diabetes mellitus with hyperglycemia; E11.65 - Type 2 diabetes mellitus with hyperglycemia; E11.65 - Type 2 diabetes mellitus with hyperglycemia; E11.65 - Type 2 diabetes mellitus with hyperglycemia; Z79.4 - parts counterman (current) use of insulin; Z79.4 - parts counterman (current) use of insulin ; Z79.4 - half-way (current) use of insulin; Z79.4 - parts counterman (current) use of insulin (4) Tobacco abuse Status: Chronic (5) GERD (gastroesophageal reflux disease) Status: Chronic Qualifiers: Esophagitis presence: esophagitis presence not specified Qualified Code(s) : K21.9 - Gastro-esophageal reflux disease without esophagitis - Discharge Medications Prescriptions: OxyCODONE Immed Rel [Roxicodone 5 MG] 5 mg PO Q6HR PRN #28 tablet PRN Reason: Pain Doxycycline 100 mg PO BID #20 capsule levoFLOXacin [Levaquin] 500 mg PO DAILY #10 tablet Home Medications: Albuterol Sulfate [Ventolin Hfa] 2 puff IH Q4H PRN 06/30/17 [History] Atorvastatin [Lipitor] 40 mg PO HS 06/30/17 [History] Buprenorphine HCl/Naloxone HCl [Suboxone 8 mg-2 mg Sl Film] 2 each SL DAILY 01/09 [History] Dulaglutide [Trulicity] 0.75 mg SQ TH 06/30/17 [History] Duloxetine HCl [Cymbalta] 60 mg PO BID 06/30/17 [History] Insulin Degludec [Tresiba Flextouch U-100] 100 unit SQ HS 06/30/17 [History] Insulin LISPRO [HumaLOG] 0 unit SQ TIDWM 06/30/17 [History] Lurasidone [Latuda] 20 mg PO DAILY 06/30/17 [History] Metoprolol [Lopressor] 25 mg PO BID 06/30/17 [History] Prazosin HCl [Minipress] 15 mg PO HS 06/30/17 [History] Quetiapine Fumarate [Seroquel] 400 mg PO HS 06/30/17 [History] hydrOXYzine pamoate [HydrOXYzine Pamoate] 25 mg PO QID 06/30/17 [History] Doxycycline 100 mg PO BID #20 capsule 07/02/17 [Rx] OxyCODONE Immed Rel [Roxicodone 5 MG] 5 mg PO Q6HR PRN #28 tablet 07/02/17 [Rx] levoFLOXacin [Levaquin] 500 mg PO DAILY #10 tablet 07/02/17 [Rx] Allergies/Adverse Reactions: 3 Allergy/AdvReac Type Severity Reaction Status Date / Time ketorolac [From Toradol] Allergy Hives Verified 06/30/17 14:37 morphine Allergy Hives Verified 06/30/17 14:37 sulfamethoxazole Allergy Hives Verified 06/30/17 14:37 [From Bactrim] tramadol Allergy Hives Verified 06/30/17 14:37 trimethoprim [From Bactrim] Allergy Hives Verified 06/30/17 14:37 trazodone AdvReac See Verified 06/30/17 14:37 Comments Date of admission: 06/30/17 16:28 Primary care physician: Charlie Dennis DO Consults: 07/01/17 09:24 Consult to Surgery [CONS] Routine Consulting Provider: Ever Winkler Reason for Consult: Left labia swelling with phlegmon Call Completed: Yes 07/02/17 08:33 Consult to Wound Care [CONS] Routine Reason for Consult: S/p I&D left labia abscess. Call Completed: No - Patient Status Disposition: Home Health Service Condition: Good - Discharge Instructions Instructions: Sulfamethoxazole/Trimethoprim (By mouth), Levofloxacin (By mouth) , Wound Infection (DC), Diabetes Mellitus Type 2 in Adults (DC), Abscess (GEN) Follow Up With: Charlie Dennis DO [Primary Care Provider] - 07/08/17 3:20 pm Kristen Adames CNP [Advanced Practice Nurse] - 07/08/17 9:00 am (hospital follow-up; wound check) Additional Instructions: Wound care- cleanse wound with soap and water in the shower daily, packed with a quarter inch plain packing. Cover with 4 x 4 gauze and taped to secure. Rx written for supplies May shower daily Hospital course: Ms. Garcia is a 31 year old female - Time Spent with Patient Total time spent providing and/or coordinating discharge services: - Constitutional Vitals: Temp Pulse Resp BP Pulse Ox 97.8 F 90 18 127/81 93 07/02/17 10:17 07/02/17 10:17 07/02/17 10:17 07/02/17 10:17 07/02/17 10:17 <Duyen Harrison - Last Filed: 07/02/17 11:49> Date of Encounter: 07/02/17 Time of Encounter: 09:04 - Discharge Diagnosis (1) Left genital labial abscess Priority: Primary Status: Acute Comments: Kaitlyn Garcia is a 31-year-old female with past medical history morbid obesity, diabetes and recurrent labial abscess who presented to [facility] on 06/30/2017 with complaints of left labia pain and swelling. She was found to have recurrent abscess and was placed in observation status for other workup and treatment. 1. Left labial abscess: presented with left labia pain and swelling. Pelvis CT with small left labail phlegmonous collection. WBC 10K, afebrile. S/p I&D on 07/01/17 per General Surgery. Treated with IV Vanco, Flagyl, cefepime. Wound cx with no pathogens isolated. ATB de-escalated to Doxycycline and Levaquin at discharge. Will need to follow-up outpatient with General Surgery. [facility] for wound care 2. Uncontrolled diabetes: Hgb A1c 11.2%. Secondary to obesity and dietary compliance. Lifestyle and diet modifications encouraged. Cont home medication regimen. Follow-up with Lead Embedded Software Engineer as previously planned 3. HTN: per hx. BP controlled. Continue home BP medication. (2) Diabetes mellitus type 2, uncontrolled, with complications Priority: Primary Status: Chronic Qualifiers: Diabetes mellitus shelter insulin use: with terminal supervisor use Qualified Code( s): E11.8 - Type 2 diabetes mellitus with unspecified complications; E11.65 - Type 2 diabetes mellitus with hyperglycemia; E11.65 - Type 2 diabetes mellitus with hyperglycemia; E11.65 - Type 2 diabetes mellitus with hyperglycemia; E11.65 - Type 2 diabetes mellitus with hyperglycemia; Z79.4 - half-way (current ) use of insulin; Z79.4 - half-way (current) use of insulin; Z79.4 - half-way (current) use of insulin; Z79.4 - parts counterman (current) use of insulin (3) Morbid obesity Priority: Primary Status: Chronic Date of admission: 06/30/17 16:28 Primary care physician: Charlie Dennis DO Consults: 07/01/17 09:24 Consult to Surgery [CONS] Routine Consulting Provider: Ever Winkler Reason for Consult: Left labia swelling with phlegmon Call Completed: Yes 07/02/17 08:33 Consult to Wound Care [CONS] Routine Reason for Consult: S/p I&D left labia abscess. Call Completed: No Discharging clinician: Duyen Harrison Anticipated date of discharge: 07/02/17 - Patient Status Functional capacity at discharge: independent ambulation Overall status at discharge: patient is back to baseline - Diet and Activity Activity: increase activity as tolerated Diet: diabetic diet Interval History: Seen and examined at bedside. Left labia cyst was I&D yesterday. She is complaining of pain to abscess site. Site with slight oozing. Swelling still present but significantly decreased from yesterday's exam Hospital course: See assessment and plan Hospital course - Time Spent with Patient Total time spent providing and/or coordinating discharge services: Greater than 30 minutes (43 minutes spent on discharge) - Constitutional Vitals: Temp Pulse Resp BP Pulse Ox 98.2 F 80 18 144/90 93 07/02/17 07:42 07/02/17 07:42 07/02/17 07:42 07/02/17 07:42 07/02/17 07:42 General appearance: Present: A&O X 3, morbidly obese - Head Head exam: Present: atraumatic, normocephalic - Eye Eye exam: Present: PERRL, conjuntiva pink, sclera anicteric Pupils: Present: PERRL - Neck Neck exam general surgery: Present: supple, trachea midline. Absent: lymphadenopathy - Respiratory Respiratory exam: Present: CTAB. Absent: accessory muscle use, rales, rhonchi, wheezes - Cardiovascular Cardiovascular exam: Present: RRR, +S1, +S2. Absent: diastolic murmur, gallop, rubs, systolic murmur - GI/Abdominal GI/Abdominal exam: Present: normal bowel sounds, soft, no peritoneal signs. Absent: distended, tenderness - Additional comments: left labia swollen with small incision to distal labia. Scant amount of serosanguineous oozing - Extremities Exam Extremities exam: Present: warm, radial pulses palpable and symmetrical. Absent : calf tenderness, cyanotic, pedal edema - Neurological Exam Neurological exam: Present: CN II-XII intact, oriented X3, no focal deficits. Absent: pronater drift, facial droop, speech deficit - Skin Skin exam: Present: dry, intact
[2017-07-02] MEDS ORDERED: *HR* OxyCODONE Immed Rel 5 MG TABLET PO PRN (09:14)
[2017-07-02 10:22] VITALS: BP 127/81
[2017-07-02] MEDS: Famotidine 20 MG/2 ML VIAL IVP SCH (10:35)
[2017-07-02] MEDS: Insulin LISPRO 300 UNITS/3 ML VIAL SQ SCH ×2 (10:49→12:10)
--- NOTE | 2017-07-02 11:23 | General Surgery Progress Note ---
<Garfield,Kristen Efrain - Last Filed: 07/02/17 11:20> Date of Encounter: 07/02/17 Time of Encounter: 11:00 - Assessment and Plan (1) Left genital labial abscess Status: Acute Day #1 s/p I&D of left labial abscess IV antibiotics- currently on cefepime, vancomycin, flagyl Cultures- no pathogens isolated Supportive care and pain control Daily wound care F/U outpatient in the surgery office- see d/c instructions for appointment and dressing change instructions Home health care at discharge for daily packing Rx given for dressing supplies Surgery will sign off at this time. Please call with further questions or concerns. Thank you for allowing us to participate in the care of this patient (2) Morbid obesity Status: Chronic (3) Diabetes mellitus type 2, uncontrolled, with complications Status: Chronic HgbA1C is 11.2 Management per hospitalist Continue insulin treatment at this time Qualifiers: Diabetes mellitus long term acute care registered nurse insulin use: unspecified long term acute care registered nurse insulin use status Qualified Code(s): E11.8 - Type 2 diabetes mellitus with unspecified complications; E11.65 - Type 2 diabetes mellitus with hyperglycemia; E11.65 - Type 2 diabetes mellitus with hyperglycemia; E11.65 - Type 2 diabetes mellitus with hyperglycemia; E11.65 - Type 2 diabetes mellitus with hyperglycemia; Z79.4 - long term care administrator (current) use of insulin; Z79.4 - care home (current) use of insulin ; Z79.4 - long term care administrator (current) use of insulin; Z79.4 - care home (current) use of insulin (4) Tobacco abuse Status: Chronic Smoking cessation education (5) GERD (gastroesophageal reflux disease) Status: Chronic PPI therapy daily Qualifiers: Esophagitis presence: esophagitis presence not specified Qualified Code(s) : K21.9 - Gastro-esophageal reflux disease without esophagitis Subjective Patient reports: no new complaints, feels better, still having pain, pain is less, voiding w/o difficulty, afebrile Objective Vital Signs - Last 8 Hours Temp Pulse Resp BP Pulse Ox 07/02/17 10:17 97.8 F 90 18 127/81 93 07/02/17 07:42 98.2 F 80 18 144/90 93 07/02/17 03:24 98.4 F 83 15 150/89 94 Intake and Output 07/01/17 07/02/17 07/02/17 23:59 07:59 15:59 Intake Total 350 / 350 100 / 100 Output Total 0 / 0 0 / 0 0 / 0 Balance 350 / 350 100 / 100 0 / 0 Intake: IV Fluids 110 / 110 100 / 100 Maxipime 1,000 MG In Water for inj. (sterile) 10 ML @ 150 mls/ hr IVP Q12H [facility] Rx#:[id number] Flagyl Premix 500 MG/100 ML 500 100 / 100 100 / 100 mg In 100 ml @ 100 mls/hr IVPB Q8HR [facility] Rx#:[id number] Oral 240 / 240 0 / 0 Output: Urine 0 / 0 0 / 0 0 / 0 Other: Meal Dinner Percent of Meal Consumed 100% # Bowel Movements 0 0 Weight 206.7 kg Blood Glucose* 224 215 246 Patient Weight 07/02/17 23:59 Weight 206.7 kg - General physical appearance well developed, well nourished, no distress, moderate pain - Eyes normal ocular movement - ENT normal mucosa, atraumatic, normocephalic - Neck Neck exam: trachea midline - Respiratory normal respiratory effort - Cardiovascular Cardiovascular exam: Present: RRR - Abdomen Abdomen: Present: soft, non tender - Incision Incision: Present: purulent (small amount of purulent drainage noted), open ( left labial abscess) - Neurologic CN 2-12 grossly intact - Musculoskeletal normal gait, normal posture - Psychiatric oriented to time, oriented to person, oriented to place, speech is normal, memory intact - Labs 07/02/17 04:04 07/02/17 04:04 Diabetes panel 07/02/17 Range/Units 04:04 Sodium 136 (136-145) mEq/L Potassium 4.1 (3.5-4.5) mEq/L Chloride 98 (98-109) mEq/L Carbon Dioxide 28 (19-29) mEq/L BUN 9 (7-20) mg/dL Creatinine 0.71 (0.57-1.11) mg/dL Glucose 225 H (70-99) mg/dL Calcium 8.9 (8.6-10.8) mg/dL Calcium panel 07/02/17 Range/Units 04:04 Calcium 8.9 (8.6-10.8) mg/dL Pituitary panel 07/02/17 Range/Units 04:04 Sodium 136 (136-145) mEq/L Potassium 4.1 (3.5-4.5) mEq/L Chloride 98 (98-109) mEq/L Carbon Dioxide 28 (19-29) mEq/L BUN 9 (7-20) mg/dL Creatinine 0.71 (0.57-1.11) mg/dL Glucose 225 H (70-99) mg/dL Calcium 8.9 (8.6-10.8) mg/dL Adrenal panel 07/02/17 Range/Units 04:04 Sodium 136 (136-145) mEq/L Potassium 4.1 (3.5-4.5) mEq/L Chloride 98 (98-109) mEq/L Carbon Dioxide 28 (19-29) mEq/L BUN 9 (7-20) mg/dL Creatinine 0.71 (0.57-1.11) mg/dL Glucose 225 H (70-99) mg/dL Calcium 8.9 (8.6-10.8) mg/dL Consult Discharge Plan - Plan Instructions: Sulfamethoxazole/Trimethoprim (By mouth), Levofloxacin (By mouth) , Wound Infection (DC), Diabetes Mellitus Type 2 in Adults (DC), Abscess (GEN) Additional Instructions: Wound care- cleanse wound with soap and water in the shower daily, packed with a quarter inch plain packing. Cover with 4 x 4 gauze and taped to secure. Rx written for supplies May shower daily Referrals: Kristen Adames CNP [Advanced Practice Nurse] - 07/08/17 9:00 am (hospital follow-up; wound check) Charlie Dennis DO [Primary Care Provider] - 07/08/17 3:20 pm Prescriptions: OxyCODONE Immed Rel [Roxicodone 5 MG] 5 mg PO Q6HR PRN #28 tablet PRN Reason: Pain Doxycycline 100 mg PO BID #20 capsule levoFLOXacin [Levaquin] 500 mg PO DAILY #10 tablet - Attending Attestation For this encounter, I have reviewed the TUBE TELLER or PA documentation, treatment plan, and medical decision making; and I have had face to face time with this patient. <Ever Winkler - Last Filed: 07/02/17 16:03> Date of Encounter: 07/02/17 Objective Vital Signs - Last 8 Hours Temp Pulse Resp BP Pulse Ox 07/02/17 10:17 97.8 F 90 18 127/81 93 Intake and Output 07/02/17 07/02/17 07/02/17 07:59 15:59 23:59 Intake Total 100 / 100 Output Total 0 / 0 0 / 0 Balance 100 / 100 0 / 0 Intake: IV Fluids 100 / 100 Flagyl Premix 500 MG/100 ML 500 100 / 100 mg In 100 ml @ 100 mls/hr IVPB Q8HR [facility] Rx#:[id number] Oral 0 / 0 Output: Urine 0 / 0 0 / 0 Other: # Bowel Movements 0 0 Weight 206.7 kg Blood Glucose* 215 246 Patient Weight 07/02/17 23:59 Weight 206.7 kg - Labs 07/02/17 04:04 07/02/17 04:04 Diabetes panel 07/02/17 Range/Units 04:04 Sodium 136 (136-145) mEq/L Potassium 4.1 (3.5-4.5) mEq/L Chloride 98 (98-109) mEq/L Carbon Dioxide 28 (19-29) mEq/L BUN 9 (7-20) mg/dL Creatinine 0.71 (0.57-1.11) mg/dL Glucose 225 H (70-99) mg/dL Calcium 8.9 (8.6-10.8) mg/dL Calcium panel 07/02/17 Range/Units 04:04 Calcium 8.9 (8.6-10.8) mg/dL Pituitary panel 07/02/17 Range/Units 04:04 Sodium 136 (136-145) mEq/L Potassium 4.1 (3.5-4.5) mEq/L Chloride 98 (98-109) mEq/L Carbon Dioxide 28 (19-29) mEq/L BUN 9 (7-20) mg/dL Creatinine 0.71 (0.57-1.11) mg/dL Glucose 225 H (70-99) mg/dL Calcium 8.9 (8.6-10.8) mg/dL Adrenal panel 07/02/17 Range/Units 04:04 Sodium 136 (136-145) mEq/L Potassium 4.1 (3.5-4.5) mEq/L Chloride 98 (98-109) mEq/L Carbon Dioxide 28 (19-29) mEq/L BUN 9 (7-20) mg/dL Creatinine 0.71 (0.57-1.11) mg/dL Glucose 225 H (70-99) mg/dL Calcium 8.9 (8.6-10.8) mg/dL - Attending Attestation The patient is seen and evaluated on morning rounds. She has had a good response to incision and drainage. We will continue packing. She can be followed as an outpatient after her condition stabilizes. Ever Winkler MD FACS
--- NOTE | 2017-07-02 11:37 | Physician Discharge Referral ---
Home Health/Hosp Referral Info Transfer to: Home Health Attending Provider: Duyen Harrison CNP Provider in Charge Post Discharge: PCP - Diagnosis (1) Left genital labial abscess Status: Acute (2) Diabetes mellitus type 2, uncontrolled, with complications Status: Chronic (3) Morbid obesity Status: Chronic - Respiratory Orders None Smoking Cessation: Smoking cessation has been advised. For more information, call the [place] Tobacco Quit Line at 6-490-JKZX-NOW. - Dressing/Wound Care Site: Left labia Type of Dressing/Treatments w/Frequency: Wound care- cleanse left labia wound with soap and water in the shower daily, packed with a quarter inch plain packing. Cover with 4 x 4 gauze and taped to secure. - Diet/Nutrition Diet/Nutrition Orders: No Concentrated Sweets - Activity Activity Orders: Up ad farideh - Services Needed Following services are medically necessary services: Nursing - Transfer Medications Prescriptions: OxyCODONE Immed Rel [Roxicodone 5 MG] 5 mg PO Q6HR PRN #28 tablet PRN Reason: Pain Doxycycline 100 mg PO BID #20 capsule levoFLOXacin [Levaquin] 500 mg PO DAILY #10 tablet Home Medications: Albuterol Sulfate [Ventolin Hfa] 2 puff IH Q4H PRN 06/30/17 [History] Atorvastatin [Lipitor] 40 mg PO HS 06/30/17 [History] Buprenorphine HCl/Naloxone HCl [Suboxone 8 mg-2 mg Sl Film] 2 each SL DAILY 01/09 [History] Dulaglutide [Trulicity] 0.75 mg SQ TH 06/30/17 [History] Duloxetine HCl [Cymbalta] 60 mg PO BID 06/30/17 [History] Insulin Degludec [Tresiba Flextouch U-100] 100 unit SQ HS 06/30/17 [History] Insulin LISPRO [HumaLOG] 0 unit SQ TIDWM 06/30/17 [History] Lurasidone [Latuda] 20 mg PO DAILY 06/30/17 [History] Metoprolol [Lopressor] 25 mg PO BID 06/30/17 [History] Prazosin HCl [Minipress] 15 mg PO HS 06/30/17 [History] Quetiapine Fumarate [Seroquel] 400 mg PO HS 06/30/17 [History] hydrOXYzine pamoate [HydrOXYzine Pamoate] 25 mg PO QID 06/30/17 [History] Doxycycline 100 mg PO BID #20 capsule 07/02/17 [Rx] OxyCODONE Immed Rel [Roxicodone 5 MG] 5 mg PO Q6HR PRN #28 tablet 07/02/17 [Rx] levoFLOXacin [Levaquin] 500 mg PO DAILY #10 tablet 07/02/17 [Rx] Allergies/Adverse Reactions: 3 Allergy/AdvReac Type Severity Reaction Status Date / Time ketorolac [From Toradol] Allergy Hives Verified 06/30/17 14:37 morphine Allergy Hives Verified 06/30/17 14:37 sulfamethoxazole Allergy Hives Verified 06/30/17 14:37 [From Bactrim] tramadol Allergy Hives Verified 06/30/17 14:37 trimethoprim [From Bactrim] Allergy Hives Verified 06/30/17 14:37 trazodone AdvReac See Verified 06/30/17 14:37 Comments Certification: Further, I certify that my clinical findings support that this patient is homebound (i.e. absences from home require considerable and taxing effort and are for medical reasons or sabianist services or infrequently or short duration when for other reasons) because: Homebound Reason: Post-surgery restriction and or conditions limit ability to leave home Attestation: My signature below is to certify that this patient is under my care and that I, or nurse practitioner, or a physician's grants and contracts assistant working with me, has a face-to -face encounter with this patient.
[2017-07-02] MEDS ORDERED: Aminoglycoside Consult 1 EACH MC ONE (12:15)
== END 2017-07-02 12:16 | disposition home health service (06) ==
LOC: 3BNU 14:19 → EMEROO 14:19 → 3BNU 17:06 → 3ANU 07-01 23:58
PROVIDERS: ADMIT Hospitalist; ATTEND Registered Nurse

== ENCOUNTER 2019-03-07 20:27 | Observation (INO) ==
[2019-03-07] MEDS: 0.9 % Sodium Chloride 1,000 ML IVC SCH ×2 (21:19→22:45)
[2019-03-07 22:01] LABS: VBG HCO3 31 mEq/L (21-27); VBG PCO2 58 mmHg (41-51); VBG PH 7.34 pH Units (7.32-7.42); VBG PO2 30 mmHg (25-50)
[2019-03-07 22:04] LABS: Basophils % 0.3 %; Eosinophils # 0.4 K/mcL (0.0-0.6); Eosinophils % 3.5 %; Hematocrit 45.5 % (35.3-44.9); Hemoglobin 15.3 g/dL (11.5-15.4); Immature Granulocytes % 0.3 % (0-4); Lymphocytes # 2.8 K/mcL (0.6-4.6); Lymphocytes % 27.9 %; Mean Corpuscular HGB Conc 33.6 g/dL (31.6-35.5); Mean Corpuscular Hemoglobin 27.9 pg (28.0-33.3); Mean Corpuscular Volume 82.9 fL (83.0-100.0); Mean Platelet Volume 10.7 fL (9.4-12.4); Monocytes # 0.7 K/mcL (0.0-1.3); Monocytes % 6.9 %; Platelet Count 232 K/mcL (140-400); Red Blood Count 5.49 M/mcL (3.82-4.97); Red Cell Distribution Width 13.7 % (11.5-14.5); Segmented Neutrophils % 61.1 %; White Blood Count 9.9 K/mcL (4.3-11.1)
[2019-03-07 22:11] LABS: BUN/Creatinine Ratio 4 (6-26); Blood Urea Nitrogen 3 mg/dL (6-20); Calcium 8.8 mg/dL (8.6-10.3); Carbon Dioxide 26 mEq/L (23-29); Chloride 97 mEq/L (98-107); Glucose 406 mg/dL (70-105); Magnesium 1.6 mg/dL (1.6-2.6); Osmolality,Calculated 290 (280-300); Phosphorous 3.2 mg/dL (2.7-4.5); Potassium 3.7 mEq/L (3.5-5.1); Sodium 133 mEq/L (136-145); eGFR For African Americans > 60 (> 60); eGFR For Non-African Americans > 60 (> 60)
[2019-03-07] MEDS ORDERED: Isovue-370 500 ML BOTTLE IVP ONE (22:17)
[2019-03-07] MEDS ORDERED: Insulin Regular, Human 100 UNIT/ML SQ ONE (22:22)
--- NOTE | 2019-03-07 22:30 | Emergency Department Note ---
Disposition Clinical Impression: Hyperglycemia Cellulitis Qualifiers: Site of cellulitis: trunk Site of cellulitis of trunk: groin Qualified Code(s): L03.314 - Cellulitis of groin Disposition: Admitted As Inpatient Condition: Good Time of Disposition: 23:55 General Adult HPI - General Chief complaint: ED Skin/Abscess/Foreign Body Stated complaint: "DKA/Abscess/Yeast Infection front to back" Time Seen by Provider: 03/07/19 20:39 Source: patient Limitations: no limitations - History of Present Illness Pain Scale: 10 - Related Data Home Medications Medication Instructions Recorded Confirmed Buprenorphine HCl/Naloxone HCl 2 each SL DAILY 06/30/17 03/07/19 [Suboxone 8 mg-2 mg Sl Film] Duloxetine HCl [Cymbalta] 60 mg PO BID 06/30/17 03/07/19 Metoprolol [Lopressor] 25 mg PO BID 06/30/17 03/07/19 Prazosin HCl [Minipress] 15 mg PO HS 06/30/17 03/07/19 Doxepin [Sinequan] 25 - 50 mg PO HS 10/25/17 03/07/19 Furosemide [Lasix] 40 mg PO DAILY 11/24/18 03/07/19 Previous Rx's Medication Instructions Recorded Quetiapine Fumarate [Seroquel] 300 mg PO HS #30 tablet 10/29/17 Albuterol Sulfate [Albuterol 2 puff IH Q4HR PRN #1 hfa.aer.ad 01/23/18 Inhaler] Ibuprofen [Ibu] 800 mg PO TID PRN #30 tablet 11/24/18 Allergies Allergy/AdvReac Type Severity Reaction Status Date / Time atorvastatin Allergy Hives Verified 11/24/18 21:56 ketorolac [From Toradol] Allergy Hives Verified 11/24/18 21:56 morphine Allergy Hives Verified 11/24/18 21:56 phenazopyridine [From Azo] Allergy Itching Verified 11/24/18 21:56 sulfamethoxazole Allergy Hives Verified 11/24/18 21:56 [From Bactrim] tramadol Allergy Hives Verified 11/24/18 21:56 trimethoprim [From Bactrim] Allergy Hives Verified 11/24/18 21:56 trazodone AdvReac See Verified 11/24/18 21:56 Comments Past Medical History - Past Medical History Medical history: Reports: diabetes, GERD, hypertension, migraine, other Surgical history: Reports: cholecystectomy (2008), orthopedic, other (Right ankle surgery), other (Liver biopsy 2008; T&A; PE tubs both ears) Psychiatric history: Reports: depression, previous psychiatric hospitalization [employer] history: Reports: spontaneous , endometriosis, polycystic ovary s yndrome - Social History Smoking Status: Current every day smoker Smokeless Tobacco Status: No Alcohol use: Reports: none Drug use: Reports: none Physical Exam - General Limitations: no limitations General appearance: alert, in no apparent distress Course Vital Signs Temperature 98.3 F 03/07/19 20:32 Pulse Rate 73 03/07/19 20:32 Respiratory Rate 20 03/07/19 20:32 Blood Pressure 146/84 03/07/19 20:32 O2 Sat by Pulse Oximetry 97 03/07/19 20:32 Temperature 98.3 F 03/07/19 20:32 Pulse Rate 80 03/07/19 23:33 Respiratory Rate 18 03/07/19 23:33 Blood Pressure 137/82 03/07/19 23:33 O2 Sat by Pulse Oximetry 97 03/07/19 20:32 Oxygen Delivery Oxygen Delivery Room Air Medical Decision Making - Lab Data Result diagrams: 03/07/19 21:42 03/07/19 21:42 Lab Results 03/07/19 03/07/19 03/07/19 Range/Units 20:52 20:54 21:42 WBC 9.9 (4.3-11.1) K/mcL RBC 5.49 H (3.82-4.97) M/mcL Hgb 15.3 (11.5-15.4) g/dL Hct 45.5 H (35.3-44.9) % MCV 82.9 L (83.0-100.0) fL MCH 27.9 L (28.0-33.3) pg MCHC 33.6 (31.6-35.5) g/dL RDW 13.7 (11.5-14.5) % Plt Count 232 (140-400) K/mcL MPV 10.7 (9.4-12.4) fL Immature Gran % 0.3 (0-4) % Seg Neutrophils % 61.1 % Lymphocytes % 27.9 % Monocytes % 6.9 % Eosinophils % 3.5 % Basophils % 0.3 % Neutrophils # 6.0 (1.6-8.9) K/mcL Lymphocytes # 2.8 (0.6-4.6) K/mcL Monocytes # 0.7 (0.0-1.3) K/mcL Eosinophils # 0.4 (0.0-0.6) K/mcL Basophils # 0.0 (0.0-0.2) K/mcL VBG pH (7.32-7.42) pH Units VBG pCO2 (41-51) mmHg VBG pO2 (25-50) mmHg VBG HCO3 (21-27) mEq/L Sodium (136-145) mEq/L Potassium (3.5-5.1) mEq/L Chloride (98-107) mEq/L Carbon Dioxide (23-29) mEq/L BUN (6-20) mg/dL Creatinine (0.60-1.20) mg/dL Est GFR ( Amer) (> 60) Est GFR (Non-Af Amer) (> 60) BUN/Creatinine Ratio (6-26) Glucose (70-105) mg/dL POC Glucose 423 H* 412 H* (70-99) mg/dL Calculated Osmolality (280-300) Lactic Acid (0.5-2.2) mmol/L Calcium (8.6-10.3) mg/dL Phosphorus (2.7-4.5) mg/dL Magnesium (1.6-2.6) mg/dL Beta-Hydroxybutyric Acd (0.02-0.27) mmol/L 03/07/19 03/07/19 03/07/19 Range/Units 21:42 21:42 21:42 WBC (4.3-11.1) K/mcL RBC (3.82-4.97) M/mcL Hgb (11.5-15.4) g/dL Hct (35.3-44.9) % MCV (83.0-100.0) fL MCH (28.0-33.3) pg MCHC (31.6-35.5) g/dL RDW (11.5-14.5) % Plt Count (140-400) K/mcL MPV (9.4-12.4) fL Immature Gran % (0-4) % Seg Neutrophils % % Lymphocytes % % Monocytes % % Eosinophils % % Basophils % % Neutrophils # (1.6-8.9) K/mcL Lymphocytes # (0.6-4.6) K/mcL Monocytes # (0.0-1.3) K/mcL Eosinophils # (0.0-0.6) K/mcL Basophils # (0.0-0.2) K/mcL VBG pH (7.32-7.42) pH Units VBG pCO2 (41-51) mmHg VBG pO2 (25-50) mmHg VBG HCO3 (21-27) mEq/L Sodium 133 L (136-145) mEq/L Potassium 3.7 (3.5-5.1) mEq/L Chloride 97 L (98-107) mEq/L Carbon Dioxide 26 (23-29) mEq/L BUN 3 L (6-20) mg/dL Creatinine 0.68 (0.60-1.20) mg/dL Est GFR ( Amer) > 60 (> 60) Est GFR (Non-Af Amer) > 60 (> 60) BUN/Creatinine Ratio 4 L (6-26) Glucose 406 H (70-105) mg/dL POC Glucose (70-99) mg/dL Calculated Osmolality 290 (280-300) Lactic Acid 2.0 (0.5-2.2) mmol/L Calcium 8.8 (8.6-10.3) mg/dL Phosphorus 3.2 (2.7-4.5) mg/dL Magnesium 1.6 (1.6-2.6) mg/dL Beta-Hydroxybutyric Acd 0.21 (0.02-0.27) mmol/L 03/07/19 Range/Units 21:52 WBC (4.3-11.1) K/mcL RBC (3.82-4.97) M/mcL Hgb (11.5-15.4) g/dL Hct (35.3-44.9) % MCV (83.0-100.0) fL MCH (28.0-33.3) pg MCHC (31.6-35.5) g/dL RDW (11.5-14.5) % Plt Count (140-400) K/mcL MPV (9.4-12.4) fL Immature Gran % (0-4) % Seg Neutrophils % % Lymphocytes % % Monocytes % % Eosinophils % % Basophils % % Neutrophils # (1.6-8.9) K/mcL Lymphocytes # (0.6-4.6) K/mcL Monocytes # (0.0-1.3) K/mcL Eosinophils # (0.0-0.6) K/mcL Basophils # (0.0-0.2) K/mcL VBG pH 7.34 (7.32-7.42) pH Units VBG pCO2 58 H (41-51) mmHg VBG pO2 30 (25-50) mmHg VBG HCO3 31 H (21-27) mEq/L Sodium (136-145) mEq/L Potassium (3.5-5.1) mEq/L Chloride (98-107) mEq/L Carbon Dioxide (23-29) mEq/L BUN (6-20) mg/dL Creatinine (0.60-1.20) mg/dL Est GFR ( Amer) (> 60) Est GFR (Non-Af Amer) (> 60) BUN/Creatinine Ratio (6-26) Glucose (70-105) mg/dL POC Glucose (70-99) mg/dL Calculated Osmolality (280-300) Lactic Acid (0.5-2.2) mmol/L Calcium (8.6-10.3) mg/dL Phosphorus (2.7-4.5) mg/dL Magnesium (1.6-2.6) mg/dL Beta-Hydroxybutyric Acd (0.02-0.27) mmol/L Attestation Statement - Attestation Attestation: I examined this patient and my medical decision-making was reviewed with the Resident Physician. I agree with the documented findings, disposition and treatment plan as described except to the extent set forth below. Patient presents to the ED with a chief complaint of an abscess. Patient reports an abscess around her labia. History of the same. She also reports high blood sugars that she is not been taking her insulin for the past month. On exam she is in no distress. She does have an erythematous area over her pubic area. No crepitus. No drainage. Plan. DKA workup. The patient is not in DKA. No ketones. Normal anionic gap. She has hyperglycemic. She is a large erythematous area over the pubic bone. We did get a CT scan of this. There is no abscess. Patient placed on IV antibiotics. Needs her blood sugar control. We will admit to medicine.
--- NOTE | 2019-03-07 22:50 | Emergency Department Note ---
Disposition Clinical Impression: Hyperglycemia Cellulitis Qualifiers: Site of cellulitis: trunk Site of cellulitis of trunk: groin Qualified Code(s): L03.314 - Cellulitis of groin Disposition: Admitted As Inpatient Condition: Good Referrals: Deborah Restrepo CNP [Primary Care Provider] - Forms: ED Satisfaction Letter Time of Disposition: 23:55 General Adult HPI - General Chief complaint: ED Skin/Abscess/Foreign Body Stated complaint: "DKA/Abscess/Yeast Infection front to back" Time Seen by Provider: 03/07/19 20:39 Source: patient Mode of arrival: private vehicle Limitations: no limitations Nursing Notes Reviewed: Yes Vital Signs Reviewed: Yes - History of Present Illness HPI Narrative: 33-year-old female with a past medical history of diabetes diagnosed when she was 16 years old, insulin-dependent, coming to the ER with complaints of a labial abscess and thinks that she is in DKA. Patient states that she has been without her insulin for a month because the insulin that she was switched to exacerbated her asthma, and she has been unable to get prescribed an insulin that would not do this. She also reports that the insulin she was switched to caused her to gain 40 pounds which also made it hard for her to breathe. Patient is complaining of shortness of breath, pain in her labia, and some white vaginal discharge. She also states she thinks that she has a yeast infection from front all the way to back. Pain Scale: 10 - Related Data Home Medications Medication Instructions Recorded Confirmed Buprenorphine HCl/Naloxone HCl 2 each SL DAILY 06/30/17 03/07/19 [Suboxone 8 mg-2 mg Sl Film] Duloxetine HCl [Cymbalta] 60 mg PO BID 06/30/17 03/07/19 Metoprolol [Lopressor] 25 mg PO BID 06/30/17 03/07/19 Prazosin HCl [Minipress] 15 mg PO HS 06/30/17 03/07/19 Doxepin [Sinequan] 25 - 50 mg PO HS 10/25/17 03/07/19 Furosemide [Lasix] 40 mg PO DAILY 11/24/18 03/07/19 Previous Rx's Medication Instructions Recorded Quetiapine Fumarate [Seroquel] 300 mg PO HS #30 tablet 10/29/17 Albuterol Sulfate [Albuterol 2 puff IH Q4HR PRN #1 hfa.aer.ad 01/23/18 Inhaler] Ibuprofen [Ibu] 800 mg PO TID PRN #30 tablet 11/24/18 Allergies Allergy/AdvReac Type Severity Reaction Status Date / Time atorvastatin Allergy Hives Verified 11/24/18 21:56 ketorolac [From Toradol] Allergy Hives Verified 11/24/18 21:56 morphine Allergy Hives Verified 11/24/18 21:56 phenazopyridine [From Azo] Allergy Itching Verified 11/24/18 21:56 sulfamethoxazole Allergy Hives Verified 11/24/18 21:56 [From Bactrim] tramadol Allergy Hives Verified 11/24/18 21:56 trimethoprim [From Bactrim] Allergy Hives Verified 11/24/18 21:56 trazodone AdvReac See Verified 11/24/18 21:56 Comments Review of Systems: In addition to that documented in the HPI above, the additional ROS was obtained: Constitutional: Denies fevers or chills Eyes: Denies vision changes ENMT: Denies sore throat CV: Denies chest pain Resp: Reports SOB GI: Denies vomiting or diarrhea Reports nausea : Denies painful urination Reports vaginal discharge, pain in her labia MSK: Denies recent trauma Skin: Reports skin irritation in her genital area Neuro: Denies new numbness or tingling or weakness Past Medical History - Past Medical History Attestation: Yes The following information was validated with the patient. Medical history: Reports: diabetes, GERD, hypertension, migraine, other Surgical history: Reports: cholecystectomy (2008), orthopedic, other (Right ankle surgery), other (Liver biopsy 2008; T&A; PE tubs both ears) Psychiatric history: Reports: depression, previous psychiatric hospitalization [employer] history: Reports: spontaneous , endometriosis, polycystic ovary syndrome - Social History Smoking Status: Current every day smoker Smokeless Tobacco Status: No Alcohol use: Reports: none Drug use: Reports: none Physical Exam General: A&O x 3. Appears mildly uncomfortable. Well developed, well nourished. Morbidly obese. Head: atraumatic, normocephalic. ENT: No conjunctival injection, no scleral icterus. PERRLA. EOMI. Oropharynx no n- erythematous. mucous membranes tacky. Neuro: No focal deficits, no speech deficit, no facial droop, mentating well. BUE/BLE Str 5/5. Pulm: Lungs CTAB A/P. No wheezes, rales, ronchi. Cardio: RRR no m/r/g. Chest not tender to palpation. Abd: Soft, non-distended. Normoactive bowel sounds. Non-tender to palpation. No guarding. Non rigid. : Pelvic exam performed by medical student while I supervised and assisted. External vagina appears irritated with some excoriations in the perineal region. Cervix visualized with thick white discharge. 8cm labial mass palpable with fluctuance on the right side of the labia majora. Extremities: Radial pulses 2+ juan antonio, dorsalis pedis/posterior tibialis 2+ juan antonio. Mild LE edema. No cyanosis, clubbing. Skin: warm, dry, intact. No rashes. Psych: Appropriate mood and affect. Answers questions appropriately. Cooperative with exam. - General Limitations: no limitations General appearance: alert, in no apparent distress Course Vital Signs Temperature 98.3 F 03/07/19 20:32 Pulse Rate 73 03/07/19 20:32 Respiratory Rate 20 03/07/19 20:32 Blood Pressure 146/84 03/07/19 20:32 O2 Sat by Pulse Oximetry 97 03/07/19 20:32 Temperature 98.3 F 03/07/19 20:32 Pulse Rate 80 03/07/19 23:33 Respiratory Rate 18 03/07/19 23:33 Blood Pressure 137/82 03/07/19 23:33 O2 Sat by Pulse Oximetry 97 03/07/19 20:32 Oxygen Delivery Oxygen Delivery Room Air Medical Decision Making - [facility] Narrative Medical decision making narrative: 33-year-old female that presents with complaints of genital abscess which she describes as being in her labia which is actually on her mons pubis, and thinking that she is in DKA. We will order an EKG, CBC, BMP, and hydroxybutyrate, chest x-ray, CT of the abdomen and pelvis to make sure that there is no gas in the abscess. We will start an IV we will administer IV fluids. When we can confirm her potassium we will begin insulin. Suspect the patient will need to be admitted for further workup and treatment. Patient did not have an anion gap, her first glucose by bedside glucose was in the 400s, a repeat glucose was also in the 400s. Patient's potassium was 3.7 initially. Patient was given 2 L of normal saline while in the department. She was ordered 40 mEq of potassium with 1% lidocaine to be given peripherally over the next 4 hours. She was ordered 10 units of insulin. A CT scan of her a bdomen and pelvis demonstrated a swelling in the right mons pubis area but did not show any subcutaneous gas consistent with Dave's. Patient was given antibiotics including Zosyn and vancomycin to cover staph strep and MRSA. Patient was made comfortable with Percocet while in the department. Patient denied any further needs for her comfort. X A pelvic exam was completed by the medical student please see physical exam notes for full details. Once patient's cellulitis has resolved, patient could be treated with Diflucan for her yeast infection. As well as nystatin cream. Patient was admitted to the hospitalist Dr. Lai for further workup and treatment. Results of the workup including any imaging and/or labwork was shared with the patient at bedside. Patient was given an opportunity to ask questions at bedside and all of their concerns were addressed. Patient verbalized understanding and agreement with plan of care. Pt remained stable while in the department. - Medical Records Medical records reviewed: Yes I reviewed the patient's medical records. - Lab Data Lab results reviewed: Yes I reviewed the patient's lab results. Result diagrams: 03/07/19 21:42 03/07/19 21:42 Lab Results 03/07/19 03/07/19 03/07/19 Range/Units 20:52 20:54 21:42 WBC 9.9 (4.3-11.1) K/mcL RBC 5.49 H (3.82-4.97) M/mcL Hgb 15.3 (11.5-15.4) g/dL Hct 45.5 H (35.3-44.9) % MCV 82.9 L (83.0-100.0) fL MCH 27.9 L (28.0-33.3) pg MCHC 33.6 (31.6-35.5) g/dL RDW 13.7 (11.5-14.5) % Plt Count 232 (140-400) K/mcL MPV 10.7 (9.4-12.4) fL Immature Gran % 0.3 (0-4) % Seg Neutrophils % 61.1 % Lymphocytes % 27.9 % Monocytes % 6.9 % Eosinophils % 3.5 % Basophils % 0.3 % Neutrophils # 6.0 (1.6-8.9) K/mcL Lymphocytes # 2.8 (0.6-4.6) K/mcL Monocytes # 0.7 (0.0-1.3) K/mcL Eosinophils # 0.4 (0.0-0.6) K/mcL Basophils # 0.0 (0.0-0.2) K/mcL VBG pH (7.32-7.42) pH Units VBG pCO2 (41-51) mmHg VBG pO2 (25-50) mmHg VBG HCO3 (21-27) mEq/L Sodium (136-145) mEq/L Potassium (3.5-5.1) mEq/L Chloride (98-107) mEq/L Carbon Dioxide (23-29) mEq/L BUN (6-20) mg/dL Creatinine (0.60-1.20) mg/dL Est GFR ( Amer) (> 60) Est GFR (Non-Af Amer) (> 60) BUN/Creatinine Ratio (6-26) Glucose (70-105) mg/dL POC Glucose 423 H* 412 H* (70-99) mg/dL Calculated Osmolality (280-300) Lactic Acid (0.5-2.2) mmol/L Calcium (8.6-10.3) mg/dL Phosphorus (2.7-4.5) mg/dL Magnesium (1.6-2.6) mg/dL Beta-Hydroxybutyric Acd (0.02-0.27) mmol/L 03/07/19 03/07/19 03/07/19 Range/Units 21:42 21:42 21:42 WBC (4.3-11.1) K/mcL RBC (3.82-4.97) M/mcL Hgb (11.5-15.4) g/dL Hct (35.3-44.9) % MCV (83.0-100.0) fL MCH (28.0-33.3) pg MCHC (31.6-35.5) g/dL RDW (11.5-14.5) % Plt Count (140-400) K/mcL MPV (9.4-12.4) fL Immature Gran % (0-4) % Seg Neutrophils % % Lymphocytes % % Monocytes % % Eosinophils % % Basophils % % Neutrophils # (1.6-8.9) K/mcL Lymphocytes # (0.6-4.6) K/mcL Monocytes # (0.0-1.3) K/mcL Eosinophils # (0.0-0.6) K/mcL Basophils # (0.0-0.2) K/mcL VBG pH (7.32-7.42) pH Units VBG pCO2 (41-51) mmHg VBG pO2 (25-50) mmHg VBG HCO3 (21-27) mEq/L Sodium 133 L (136-145) mEq/L Potassium 3.7 (3.5-5.1) mEq/L Chloride 97 L (98-107) mEq/L Carbon Dioxide 26 (23-29) mEq/L BUN 3 L (6-20) mg/dL Creatinine 0.68 (0.60-1.20) mg/dL Est GFR ( Amer) > 60 (> 60) Est GFR (Non-Af Amer) > 60 (> 60) BUN/Creatinine Ratio 4 L (6-26) Glucose 406 H (70-105) mg/dL POC Glucose (70-99) mg/dL Calculated Osmolality 290 (280-300) Lactic Acid 2.0 (0.5-2.2) mmol/L Calcium 8.8 (8.6-10.3) mg/dL Phosphorus 3.2 (2.7-4.5) mg/dL Magnesium 1.6 (1.6-2.6) mg/dL Beta-Hydroxybutyric Acd 0.21 (0.02-0.27) mmol/L 03/07/19 Range/Units 21:52 WBC (4.3-11.1) K/mcL RBC (3.82-4.97) M/mcL Hgb (11.5-15.4) g/dL Hct (35.3-44.9) % MCV (83.0-100.0) fL MCH (28.0-33.3) pg MCHC (31.6-35.5) g/dL RDW (11.5-14.5) % Plt Count (140-400) K/mcL MPV (9.4-12.4) fL Immature Gran % (0-4) % Seg Neutrophils % % Lymphocytes % % Monocytes % % Eosinophils % % Basophils % % Neutrophils # (1.6-8.9) K/mcL Lymphocytes # (0.6-4.6) K/mcL Monocytes # (0.0-1.3) K/mcL Eosinophils # (0.0-0.6) K/mcL Basophils # (0.0-0.2) K/mcL VBG pH 7.34 (7.32-7.42) pH Units VBG pCO2 58 H (41-51) mmHg VBG pO2 30 (25-50) mmHg VBG HCO3 31 H (21-27) mEq/L Sodium (136-145) mEq/L Potassium (3.5-5.1) mEq/L Chloride (98-107) mEq/L Carbon Dioxide (23-29) mEq/L BUN (6-20) mg/dL Creatinine (0.60-1.20) mg/dL Est GFR ( Amer) (> 60) Est GFR (Non-Af Amer) (> 60) BUN/Creatinine Ratio (6-26) Glucose (70-105) mg/dL POC Glucose (70-99) mg/dL Calculated Osmolality (280-300) Lactic Acid (0.5-2.2) mmol/L Calcium (8.6-10.3) mg/dL Phosphorus (2.7-4.5) mg/dL Magnesium (1.6-2.6) mg/dL Beta-Hydroxybutyric Acd (0.02-0.27) mmol/L - Radiology Data Radiology results reviewed: Yes I reviewed the patient's radiology results. Abdomen/Pelvis CT 03/07/19 22:17 IMPRESSION: Subcutaneous soft tissue stranding in the mons pubis, only partially imaged. No soft tissue gas or fluid collection identified. D/ / Gabriel Kennedy MD / Gabriel Kennedy MD Interpreting Provider: Gabriel Kennedy MD - EKG Data EKG #1 EKG attestation: Yes I reviewed and interpreted this EKG. EKG results narrative: Heart rate 76, rhythm sinus, axis normal. MD Saturday 7, QRS 88, QTC 410. No ST segment elevation or depression. No WPW no Brugada. When compared from previous study dated 11/24/2018 the previous study demonstrates sinus tachycardia.
[2019-03-07] MEDS ORDERED: *HR* OxyCODONE/APAP 5/325 TABLET PO ONE (22:53)
[2019-03-07] MEDS ORDERED: Piperacillin/Tazobactam 3.375 GM in 0.9 % Sodium Chloride Mini Bag 100 ML IVPB ONE (23:35)
[2019-03-07] MEDS ORDERED: Potassium Chloride 40 MEQ, Lidocaine 1% 2 ML in D5% in Water 500 ML IVPB ONE (23:36)
[2019-03-08 00:48] LABS: Bilirubin,Urine Negative (Negative); Clarity,Urine Clear (Clear); Color,Urine Yellow (Yellow); Glucose,Urine (UA) >=1000 mg/dL (Normal); Ketones,Urine Negative (Negative); Specific Gravity,Urine > 1.030 (1.010-1.025)
[2019-03-08 00:49] LABS: Blood,Urine Small (Negative); Leukocyte Esterase,Urine Trace (Negative); Nitrite,Urine Negative (Negative); PH,Urine 6.5 pH Units (5.0-8.0); Protein,Urine Negative (Neg-Trace); Urobilinogen,Urine Normal (Normal)
[2019-03-08 00:54] LABS: Bacteria,Urine None Seen per hpf (None-Few); Hyaline Casts,Urine None Seen per lpf (None-Few); Squamous Epithelial Cell,Urine Many per lpf (None-Few)
[2019-03-08 01:35] LABS: Candida DNA DETECTED (Not Detect); Gardnerella DNA Not Detected (Not Detect); Trichomonas DNA Not Detected (Not Detect)
[2019-03-08] MEDS: 0.9 % Sodium Chloride 1,000 ML IVC SCH ×3 (01:42→12:16)
[2019-03-08] MEDS: Nystatin Ointment 15 GM TUBE TP SCH ×4 (02:01→22:35)
[2019-03-08] MEDS ORDERED: Naloxone 0.4 MG/ML INJ IVP PRN (03:37)
[2019-03-08] MEDS ORDERED: *HR* Dextrose 50 % in Water (Syg) 50 ML SYRINGE IVP PRN (04:16)
[2019-03-08] MEDS ORDERED: Dextrose Gel 15 GM/37.5 ML TUBE PO PRN ×2 (04:16)
[2019-03-08] MEDS ORDERED: D5% in Water 1,000 ML IVC PRN (04:16)
[2019-03-08] MEDS: Acetaminophen 325 MG TABLET PO PRN ×2 (04:28→14:58)
[2019-03-08] MEDS: Insulin LISPRO 300 UNITS/3 ML VIAL SQ SCH ×4 (05:16→19:56)
--- NOTE | 2019-03-08 06:33 | Internal Med History&Physical ---
Date of Encounter: 03/08/19 Time of Encounter: 03:09 Internal Medicine - H&P: HPI Chief complaint: Cellulitis Admitted From: Emergency Dept Plans for Post Hospital Care: Home History of present illness: Ms. Garcia is a 33 year old female Patient presented to the ER with pain in her groin. She has a history of labial abscesses and has required incision and drainage to be performed in the past. She has also had elevated blood sugar, stating that her outpatient physician has been working on a insulin regimen that would not cause her to have so much weight gain. She has not been taking her insulin for this reason. She states that her groin pain is a throbbing in character, and she has redness from the mons pubis through out her groin area. In the ER patient's vital signs: Temperature 98.3, Pulse 73, Resp rate 20, blood pressure 146/84, oxygen saturation 97. CBC: Notable for a WBC of 9.9 BMP: Remarkable for glucose of 412. Lactic acid 2.0 Magnesium 1.6 Phosphorus 3.2 BHB 0.21 Urinalysis: Greater than 1000 glucose, small blood, negative nitrite, trace leukocyte esterase, 5-15 wbcs no bacteria. Serology: Anastasia species, detected, gardnerella and trichomonas not detected. Abdomen and pelvis CT was performed that showed: Subcutaneous soft tissue stranding in the mons pubis, only partially imaged. No soft tissue gas or fluid collection identified. Patient was started on zosyn and vancomycin. Blood cultures were not initially ordered from the ER, but were added by myself later. She received 2 liters of IV fluids, 10 units of insulin, percocet, and 40meq of potassium. She was admitted to the hospital for further management. Upon my evaluation, patient is resting comfortably in the hospital bed in no acute distress. She denies chest pain , abdominal pain, nausea, vomiting, diar tonie and constipation. She denies dysuria as well. She has had infections like this in the past, most recently in January of 2018, and OBGYN requested she be transferred to [facility]. Prior to this she had one that surgery I&D'ed here. She is a full code. Past Med Surg Social Fam HX - Past Medical History Medical history: diabetes, GERD, hypertension, migraine, other Additional medical history: endometrosis, polycystitic ovary disease Psychiatric history: depression, previous psychiatric hospitalization - Past Surgical History Surgical History: cholecystectomy Additional surgical history: R ankle surgery, liver biospy - Social History Smoking Status: Current every day smoker Smokeless Tobacco Status: No Alcohol use: none Drug use: none - Family History Father Adopted: No Family Member Ethnicity: Non- Living Status: Still Living Hx Family Cardiac Disorders: Yes (HTN) Hx Family Respiratory Disorders: No Hx Family Cancer: No Hx Family GI Disorders: No Hx Family Endocrine Disorder: Yes (DM) Hx Family Neuromuscular Disorders: No Hx Family Neurologic Disorders: No Hx Family HEENT Disorders: No Hx Family Autoimmune Disorders: No Mother Adopted: No Family Member Ethnicity: Non- Living Status: Hx Family Cardiac Disorders: No Hx Family Respiratory Disorders: Yes (Mother of COPD) Hx Family Cancer: No Hx Family GI Disorders: No Hx Family Endocrine Disorder: No Hx Family Neuromuscular Disorders: No Hx Family Neurologic Disorders: Yes (Alzheimers) Hx Family HEENT Disorders: No Hx Family Autoimmune Disorders: No Hx Family Medical Disorders: Yes (protein a deficiency) Internal Medicine - H&P: Meds Buprenorphine HCl/Naloxone HCl [Suboxone 8 mg-2 mg Sl Film] 1.75 each SL DAILY 06/30/17 [History] Duloxetine HCl [Cymbalta] 60 mg PO BID 06/30/17 [History] Metoprolol [Lopressor] 25 mg PO BID 06/30/17 [History] Prazosin HCl [Minipress] 15 mg PO HS 06/30/17 [History] Doxepin [Sinequan] 25 - 50 mg PO HS 10/25/17 [History] Quetiapine Fumarate [Seroquel] 300 mg PO HS #30 tablet 10/29/17 [Rx] Albuterol Sulfate [Albuterol Inhaler] 2 puff IH Q4HR PRN #1 hfa.aer.ad 01/23/18 [Rx] Furosemide [Lasix] 40 mg PO DAILY 11/24/18 [History] Ibuprofen [Ibu] 800 mg PO TID PRN #30 tablet 11/24/18 [Rx] Allergy/AdvReac Type Severity Reaction Status Date / Time atorvastatin Allergy Hives Verified 03/08/19 01:26 ketorolac [From Toradol] Allergy Hives Verified 03/08/19 01:26 morphine Allergy Hives Verified 07/14/19 01:26 phenazopyridine [From Azo] Allergy Itching Verified 03/08/19 01:26 sulfamethoxazole Allergy Hives Verified 03/08/19 01:26 [From Bactrim] tramadol Allergy Hives Verified 03/08/19 01:26 trimethoprim [From Bactrim] Allergy Hives Verified 03/08/19 01:26 trazodone AdvReac See Verified 03/08/19 01:26 Comments All Systems PM: A 10-system review of systems was performed and is negative for pertinent findings except as documented above in the HPI. - Constitutional Vitals: Temp Pulse Resp BP Pulse Ox 98.5 F 76 16 115/53 92 03/08/19 03:24 03/08/19 03:24 03/08/19 03:24 03/08/19 03:24 03/08/19 03:24 General appearance: Present: cooperative, A&O X 3, pleasant, no acute distress, answers questions appropriately Exam: - - Eye Eye exam: Present: EOMI, normal appearance - Respiratory Respiratory exam: Present: CTAB. Absent: rales, respiratory distress, rhonchi, wheezes - Cardiovascular Cardiovascular exam: Present: RRR. Absent: diastolic murmur, systolic murmur - GI/Abdominal GI/Abdominal exam: Present: normal bowel sounds, soft. Absent: tenderness - Extremities Exam Extremities exam: Present: warm, radial pulses palpable and symmetrical. Absent: calf tenderness, pedal edema, tenderness - Neurological Exam Neurological exam: Present: no focal deficits, strengths equal and symetr throughout. Absent: motor sensory deficit, facial droop, speech deficit - Skin Skin exam: Present: dry, erythema, intact, warm Additional comments: Right side of mons pubis red and tender to palpation, no open wound Internal Med - H&P Results - Labs CBC & Chem 7: 03/07/19 21:42 03/07/19 21:42 Labs: Short CBC 03/07/19 Range/Units 21:42 WBC 9.9 (4.3-11.1) K/mcL Hgb 15.3 (11.5-15.4) g/dL Hct 45.5 H (35.3-44.9) % Plt Count 232 (140-400) K/mcL Neutrophils # 6.0 (1.6-8.9) K/mcL BMP 03/07/19 21:42 Sodium 133 L Potassium 3.7 Chloride 97 L Carbon Dioxide 26 BUN 3 L Creatinine 0.68 Glucose 406 H Calcium 8.8 Urine 03/07/19 Range/Units 22:15 Urine Color Yellow (Yellow) Urine Clarity Clear (Clear) Urine pH 6.5 (5.0-8.0) pH Units Ur Specific [place] > 1.030 H (1.010-1.025) Urine Protein Negative (Neg-Trace) mg/dL Urine Glucose (UA) >=1000 H (Normal) mg/dL - ABG Interpretation ABG results: 03/07/19 21:52 VBG pH 7.34 VBG pCO2 58 H VBG pO2 30 VBG HCO3 31 H - Impressions ITS Impressions Abdomen/Pelvis CT 03/07/19 22:17 IMPRESSION: Subcutaneous soft tissue stranding in the mons pubis, only partially imaged. No soft tissue gas or fluid collection identified. D/ / Gabriel Kennedy MD / Gabriel Kennedy MD Interpreting Provider: Gabriel Kennedy MD - Assessment and Plan (1) Cellulitis Current Visit: Yes Status: Acute Assessment and plan: Redness and tenderness at the area of right mons pubis. No abscess on CT or gas formation. She was started on vancomycin and zosyn in the ER. She does not meet sepsis criteria. Blood cultures were drawn. Follow up blood cultures Continue IV antibiotics. Monitor for worsening signs of infection Consider surgery consultation if not improving for possible I&D. Qualifiers: Site of cellulitis: trunk Site of cellulitis of trunk: groin Qualified Code(s): L03.314 - Cellulitis of groin (2) Buprenorphine dependence Current Visit: No Status: Chronic Assessment and plan: Would continue home meds but patient only had 1 tab left in her prescription bottle. Should have more according to the order and fill date on the bottle. Continue subutex (3) Diabetes mellitus type 2, uncontrolled, with complications Current Visit: No Status: Chronic Assessment and plan: Patient is not an insulin dependent diabetic as she has not been taking medications due to weight gain. Blood glucose was 412, improved to 287 after insulin given. Monitor sugars Q6H NPO Low dose insulin sliding scale as needed Hold home meds. (4) Anastasia infection Current Visit: Yes Status: Acute Assessment and plan: Nystatin ointment given in the ER. Serology also positive. Continue nystatin ointment Give diflucan PO. (5) DVT prophylaxis Current Visit: Yes Status: Acute Assessment and plan: Subcutaneous heparin Q8H - Time Spent With Patient Total time spent is greater than 50% in coordination of care (as documented) at patient's floor/unit and/or counseling patient: Greater than 35 minutes
[2019-03-08] MEDS ORDERED: Fluconazole 100 MG TABLET PO ONE (07:45)
[2019-03-08] MEDS: Ibuprofen 800 MG TABLET PO PRN ×2 (08:40→17:16)
[2019-03-08] MEDS: Piperacillin/Tazobactam 3.375 GM in 0.9 % Sodium Chloride Mini Bag 100 ML IVPB SCH ×3 (08:41→23:53)
[2019-03-08] MEDS: *HR* Buprenorphine HCl 2 MG SUBLINGUAL TABLET SL SCH (08:41)
[2019-03-08 10:04] LABS: Hematocrit 45.5 % (35.3-44.9); Mean Corpuscular Hemoglobin 27.5 pg (28.0-33.3); Mean Corpuscular Volume 83.3 fL (83.0-100.0); Mean Platelet Volume 9.8 fL (9.4-12.4); Platelet Count 236 K/mcL (140-400); Red Blood Count 5.46 M/mcL (3.82-4.97); Red Cell Distribution Width 13.9 % (11.5-14.5); White Blood Count 8.8 K/mcL (4.3-11.1)
[2019-03-08 10:43] LABS: BUN/Creatinine Ratio 5 (6-26); Blood Urea Nitrogen 3 mg/dL (6-20); C-Reactive Protein 21 mg/L (Less than 10); Calcium 8.3 mg/dL (8.6-10.3); Carbon Dioxide 24 mEq/L (23-29); Chloride 102 mEq/L (98-107); Glucose 292 mg/dL (70-105); Osmolality,Calculated 283 (280-300); Potassium 3.7 mEq/L (3.5-5.1); Sodium 133 mEq/L (136-145); eGFR For African Americans > 60 (> 60); eGFR For Non-African Americans > 60 (> 60)
[2019-03-08] MEDS ORDERED: Aminoglycoside Consult 1 EACH MC ONE (11:49)
--- NOTE | 2019-03-08 14:21 | Event Note ---
Date of Encounter: 03/08/19 Time of Encounter: 14:16 I have seen and evaluated the patient at bedside. H&p, labs and vitals reviewed. Pelvic US ordered. OB&EMBEDDED NURSE consulted. per ER physical exam patient has an 8cm labial mass palpable with fluctuance on the right side of the labia majora. will continue current antibiotics.
[2019-03-08] MEDS: *HR* Heparin 5,000 UNIT/ML VIAL SQ SCH ×2 (14:56→22:34)
--- NOTE | 2019-03-08 15:24 | OB/GYN Consult Note ---
Date of Encounter: 03/08/19 Time of Encounter: 15:13 Assessment and Plan (1) Vulvar cellulitis Current Visit: Yes Status: Acute Recommend parenteral antibiotics & follow-up with [facility] @ [facility]. Pt has seen them in the past for similar issues & should already be established. She is stable & not a surgical candidate at her blood glucose is uncontrolled. She should be managed at a tertiary care center for further SCOUTS interventions. This was discussed with Dr. Medina. (2) Hyperglycemia Current Visit: Yes Status: Acute Manage per primary. (3) Recurrent candidiasis of vagina Current Visit: Yes Status: Acute I would recommend initiation of Terazol 7 PV & Lotrisone for external use. History of Present Illness Consult date: 03/08/19 Requesting physician: Louis Mcintyre Reason for consult: other (Labial abscess) Chief complaint: abscess History of present illness: 33yo presents to the ED with a 1 week history of mons pubis cellulitis. She denies any fluctuance, drainage or vaginal component to this current episode. She has a h/o vaginal abscesses & cellulitis. She's had several SCOUTS interventions through [facility] ([facility]) for similar issues in the past, most recent in January of 2018. She's recently chosen not to take her insulin for the past month & she's currently hyperglycemic. Her yeast infection is currently treated w/ PO fluconazole. She denies any vaginal bleeding or other SCOUTS complaints. Past Med Surg Social Fam HX - Past Medical History Medical history: diabetes, GERD, hypertension, migraine, other Additional medical history: endometrosis, polycystitic ovary disease Psychiatric history: depression, previous psychiatric hospitalization - Past Surgical History Surgical History: cholecystectomy Additional surgical history: R ankle surgery, liver biospy - Social History Smoking Status: Current every day smoker Smokeless Tobacco Status: No Alcohol use: none Drug use: none - Family History Father Adopted: No Family Member Ethnicity: Non- Living Status: Still Living Hx Family Cardiac Disorders: Yes (HTN) Hx Family Respiratory Disorders: No Hx Family Cancer: No Hx Family GI Disorders: No Hx Family Endocrine Disorder: Yes (DM) Hx Family Neuromuscular Disorders: No Hx Family Neurologic Disorders: No Hx Family HEENT Disorders: No Hx Family Autoimmune Disorders: No Mother Adopted: No Family Member Ethnicity: Non- Living Status: Hx Family Cardiac Disorders: No Hx Family Respiratory Disorders: Yes (Mother of COPD) Hx Family Cancer: No Hx Family GI Disorders: No Hx Family Endocrine Disorder: No Hx Family Neuromuscular Disorders: No Hx Family Neurologic Disorders: Yes (Alzheimers) Hx Family HEENT Disorders: No Hx Family Autoimmune Disorders: No Hx Family Medical Disorders: Yes (protein a deficiency) Medications and Allergies Buprenorphine HCl/Naloxone HCl [Suboxone 8 mg-2 mg Sl Film] 1.75 each SL DAILY 1 08/30/16 [History] Duloxetine HCl [Cymbalta] 60 mg PO BID 06/30/17 [History] Prazosin HCl [Minipress] 15 mg PO HS 06/30/17 [History] Albuterol Sulfate [Albuterol Inhaler] 2 puff IH Q4HR PRN #1 hfa.aer.ad 01/23/18 [Rx] Furosemide [Lasix] 40 mg PO DAILY 11/24/18 [History] Ibuprofen [Ibu] 800 mg PO TID PRN #30 tablet 11/24/18 [Rx] Doxepin HCl 150 mg PO HS 03/08/19 [History] Metoprolol Succinate [Kapspargo Sprinkle] 100 mg PO DAILY 03/08/19 [History] Potassium Chloride [K-Tab ER] 20 - 40 meq PO DAILY 03/08/19 [History] Quetiapine Fumarate [SEROquel] 200 mg PO HS 03/08/19 [History] Ramelteon [Rozerem] 8 mg PO DAILY 03/08/19 [History] hydroCHLOROthiazide [Hydrochlorothiazide] 25 mg PO DAILY 03/08/19 [History] Allergy/AdvReac Type Severity Reaction Status Date / Time atorvastatin Allergy Hives Verified 03/08/19 01:26 ketorolac [From Toradol] Allergy Hives Verified 03/08/19 01:26 morphine Allergy Hives Verified 03/08/19 01:26 phenazopyridine [From Azo] Allergy Itching Verified 03/08/19 01:26 sulfamethoxazole Allergy Hives Verified 03/08/19 01:26 [From Bactrim] tramadol Allergy Hives Verified 03/08/19 01:26 trimethoprim [From Bactrim] Allergy Hives Verified 03/08/19 01:26 trazodone AdvReac See Verified 03/08/19 01:26 Comments Review of Systems Constitutional: as per HPI, no excessive sweating, no weight loss Eyes: bilateral: blurred vision (patient denies), diplopia (patient denies) Nose, mouth and throat: no dizziness, no headache(s) Cardiovascular: no chest pain, no palpitations Respiratory: no cough, no hemoptysis Gastrointestinal: no abdominal pain, no change in bowel habits Genitourinary Female: genital lesions (mons pubis), vaginal discharge, vaginal pruritis Musculoskeletal: no muscle weakness, no numbness Integumentary: no hirsutism, no striae Psychiatric: no depression, no difficulty concentrating Endocrine: as per HPI Hematologic/Lymphatic: no easy bruising, no lymphadenopathy Exam - Vital Signs Vital signs: Initial Vital Signs Temp Pulse Resp BP Pulse Ox 98.3 F 73 20 146/84 97 03/07/19 20:32 03/07/19 20:32 03/07/19 20:32 03/07/19 20:32 03/07/19 20:32 - Constitutional Constitutional: morbidly obese - HEENT HEENT: Mucus Membranes Moist - Neck Neck exam: supple - Vulva Vulva: bilateral: pigmented lesion (induration of mons pubis R>L approx. 5x9cm. No fluctuance or drainage. +Erythema. +Yeast diffusely over vulva bilaterally.) - Vagina Vagina: Present: discharge (+Yeast on vaginosis swab) Results Result Diagrams: 03/08/19 09:49 03/08/19 09:49 Abnormal lab results RBC 5.46 M/mcL (3.82-4.97) H 03/08/19 09:49 Hct 45.5 % (35.3-44.9) H 03/08/19 09:49 MCV 82.9 fL (83.0-100.0) L 03/07/19 21:42 MCH 27.5 pg (28.0-33.3) L 03/08/19 09:49 ESR 33 mm/hr (0-15) H 03/08/19 09:49 VBG pCO2 58 mmHg (41-51) H 03/07/19 21:52 VBG HCO3 31 mEq/L (21-27) H 03/07/19 21:52 Sodium 133 mEq/L (136-145) L 03/08/19 09:49 Chloride 97 mEq/L (98-107) L 03/07/19 21:42 BUN 3 mg/dL (6-20) L 03/08/19 09:49 BUN/Creatinine Ratio 5 (6-26) L 03/08/19 09:49 Glucose 292 mg/dL (70-105) H 03/08/19 09:49 POC Glucose 274 mg/dL (70-99) H 03/08/19 05:15 Calcium 8.3 mg/dL (8.6-10.3) L 03/08/19 09:49 C-Reactive Protein 21 mg/L (Less than 10) H 03/08/19 09:49 Ur Specific [place] > 1.030 (1.010-1.025) H 03/07/19 22:15 Urine Glucose (UA) >=1000 mg/dL (Normal) H 03/07/19 22:15 Urine Blood Small (Negative) H 03/07/19 22:15 Ur Leukocyte Esterase Trace (Negative) H 03/07/19 22:15 Urine Microscopic RBC 5-15 per hpf (0-3) H 03/07/19 22:15 Urine Microscopic WBC 5-15 per hpf (0-3) H 03/07/19 22:15 Ur Squamous Epith Cells Many per lpf (None-Few) H 03/07/19 22:15 Ur Culture Indicated? YES (NO) A 03/07/19 22:15 Anastasia species DNA DETECTED (Not Detect) A 03/07/19 22:15 All other labs normal. Consult Discharge Plan - Plan Referrals: Deborah Restrepo, [employer] W[employer] ATTENDANT [Primary Care Provider] -
[2019-03-08] MEDS: Clotrimazole/Betameth Dip CRM 45 APPL/45 GM TUBE TP SCH (19:57)
[2019-03-08] MEDS ORDERED: Acetaminophen IV 500 MG/50 ML INFUS..BTL IVPB ONE (20:29)
[2019-03-08] MEDS ORDERED: Insulin DETEMIR 100 UNIT/ML X5UNITS SQ SCH (21:00)
[2019-03-08] MEDS ORDERED: Terconazole Vag CRM 20 GM TUBE VG SCH (21:00)
[2019-03-09] MEDS: Ibuprofen 800 MG TABLET PO PRN (03:01)
[2019-03-09] MEDS: *HR* Heparin 5,000 UNIT/ML VIAL SQ SCH (05:06)
[2019-03-09 06:56] VITALS: BP 134/71
[2019-03-09] MEDS: *HR* Buprenorphine HCl 2 MG SUBLINGUAL TABLET SL SCH (08:15)
[2019-03-09] MEDS: Insulin LISPRO 300 UNITS/3 ML VIAL SQ SCH (08:16)
[2019-03-09] MEDS: Piperacillin/Tazobactam 3.375 GM in 0.9 % Sodium Chloride Mini Bag 100 ML IVPB SCH (08:17)
[2019-03-09] MEDS: Clotrimazole/Betameth Dip CRM 45 APPL/45 GM TUBE TP SCH (08:18)
[2019-03-09] MEDS: Nystatin Ointment 15 GM TUBE TP SCH (08:18)
[2019-03-09] MEDS ORDERED: Insulin LISPRO 300 UNITS/3 ML VIAL SQ SCH (08:59)
[2019-03-09] MEDS ORDERED: Insulin DETEMIR 100 UNIT/ML X5UNITS SQ SCH (09:00)
--- NOTE | 2019-03-09 11:11 | Discharge Summary ---
- NOTES TO OUTPATIENT PROVIDER Notes to Outpatient Provider: f/u with [facility] from [facility]. Please check your blood sugars 4 times a day and adjust your Insulin accordingly.. Also talk to your PCP for insulin adjustments Orders not resulted at time of discharge: Pending orders 03/07/19 20:48 ECG 12 lead ECG [ECG] Stat 03/07/19 23:56 Culture,Blood [BC] Routine 03/09/19 07:41 BMP [Basic Metabolic Panel] Stat CBC [Complete Blood Count] [HEME] Stat Magnesium Stat Phosphorous Stat Date of Encounter: 03/09/19 Time of Encounter: 11:05 - Discharge Diagnosis (1) Abscess of groin, right Priority: Primary Status: Acute (2) Cellulitis Priority: Primary Status: Acute Qualifiers: Site of cellulitis: trunk Site of cellulitis of trunk: groin Qualified Code(s): L03.314 - Cellulitis of groin (3) Anastasia infection Priority: Primary Status: Acute (4) Diabetes mellitus type 2, uncontrolled, with complications Priority: Primary Status: Chronic (5) Buprenorphine dependence Priority: Secondary Status: Chronic (6) DVT prophylaxis Priority: Secondary Status: Acute Hospital course: Ms. Garcia is a 33 year old female with known PMH of DM2, Diastolic CHF, Morbid obesity with BMI @ 70, HTN, HLD and recurrent Rt groin abscess who followed at [facility] in the past now she presented to ER with worsening swelling, tenderness and erythema in Rt groin area. She does have moderate size swelling wit induration noticed on physical examination. however CT of Pelvis did not show any abscess / fluid collection. Pt was seen by Family [facility] Consumer Education Teacher, recommend to try IV abx, if no improvement, she need to be transferred to [facility] for further care since she is complicated patient. When I examined her first time today, she stil has 5 cm size induration / swelling with moderate tenderness and erythema with no open wound. She would get benefit with I & D, so I explained this to pt and make recommendation to transfer to [facility] for further care. However pt do not wanted to go now, she decided to leave AMA and f/u with [facility] as an out pt.. She wanted to drive up to [facility] later. I explained to the pt how important to fix this abscess otherwise it can lead into septic shock, especially with her uncontrolled Blood sugars. However pt still decided to leave, so I gave her rx for PO Abx Doxy and Flagyl, as well as Insulin Levemir + Humalog. - Time Spent with Patient Total time spent providing and/or coordinating discharge services: - Discharge Medications Prescriptions: New Fluconazole [Diflucan] 100 mg PO DAILY #5 tablet Doxycycline Hyclate 100 mg PO BID #20 tablet metroNIDAZOLE [Flagyl] 500 mg PO TID #30 tablet Insulin LISPRO [Humalog] 7 unit SQ TID #2 cartridge Insulin DETEMIR [Levemir] 20 unit SQ BID #2 Continued Prazosin HCl [Minipress] 15 mg PO HS Duloxetine HCl [Cymbalta] 120 mg PO HS Buprenorphine HCl/Naloxone HCl [Suboxone 8 mg-2 mg Sl Film] 1 each SL BID Albuterol Sulfate [Proventil Inhaler] 2 puff IH Q4HR PRN #1 hfa.aer.ad PRN Reason: Wheezing Doxepin HCl 150 mg PO HS hydroCHLOROthiazide [Hydrochlorothiazide] 25 mg PO DAILY Metoprolol Succinate [Kapspargo Sprinkle] 100 mg PO DAILY Potassium Chloride [K-Tab ER] 20 - 40 meq PO DAILY Quetiapine Fumarate [Seroquel] 200 mg PO HS Ramelteon [Rozerem] 8 mg PO DAILY Furosemide [Lasix] 40 - 80 mg PO DAILY PRN PRN Reason: swelling Ibuprofen [Ibu] 800 mg PO TID PRN #30 tablet PRN Reason: Pain Home Medications: Buprenorphine HCl/Naloxone HCl [Suboxone 8 mg-2 mg Sl Film] 1 each SL BID 06/30/17 [History] Duloxetine HCl [Cymbalta] 120 mg PO HS 06/30/17 [History] Prazosin HCl [Minipress] 15 mg PO HS 06/30/17 [History] Albuterol Sulfate [Proventil Inhaler] 2 puff IH Q4HR PRN #1 hfa.aer.ad 01/23/18 [Rx] Furosemide [Lasix] 40 - 80 mg PO DAILY PRN 11/24/18 [History] Ibuprofen [Ibu] 800 mg PO TID PRN #30 tablet 11/24/18 [Rx] Doxepin HCl 150 mg PO HS 03/08/19 [History] Metoprolol Succinate [Kapspargo Sprinkle] 100 mg PO DAILY 03/08/19 [History] Potassium Chloride [K-Tab ER] 20 - 40 meq PO DAILY 03/08/19 [History] Quetiapine Fumarate [Seroquel] 200 mg PO HS 03/08/19 [History] Ramelteon [Rozerem] 8 mg PO DAILY 03/08/19 [History] hydroCHLOROthiazide [Hydrochlorothiazide] 25 mg PO DAILY 03/08/19 [History] Doxycycline Hyclate 100 mg PO BID #20 tablet 03/09/19 [Rx] Fluconazole [Diflucan] 100 mg PO DAILY #5 tablet 03/09/19 [Rx] Insulin DETEMIR [Levemir] 20 unit SQ BID #2 03/09/19 [Rx] Insulin LISPRO [Humalog] 7 unit SQ TID #2 cartridge 03/09/19 [Rx] metroNIDAZOLE [Flagyl] 500 mg PO TID #30 tablet 03/09/19 [Rx] Allergies/Adverse Reactions: Allergy/AdvReac Type Severity Reaction Status Date / Time atorvastatin Allergy Hives Verified 03/08/19 01:26 ketorolac [From Toradol] Allergy Hives Verified 03/08/19 01:26 morphine Allergy Hives Verified 03/08/19 01:26 phenazopyridine [From Azo] Allergy Itching Verified 03/08/19 01:26 sulfamethoxazole Allergy Hives Verified 03/08/19 01:26 [From Bactrim] tramadol Allergy Hives Verified 03/08/19 01:26 trimethoprim [From Bactrim] Allergy Hives Verified 03/08/19 01:26 trazodone AdvReac See Verified 03/08/19 01:26 Comments Date of admission: 03/08/19 00:06 Primary care physician: Deborah Restrepo CNP Consults: 03/08/19 14:14 Consult to [employer] AND SALE CLERK [CONS] Routine Consulting Provider: SALES FLOOR ASSOCIATE Bozena Reason for Consult: vaginal abscess Call Completed: Yes - Constitutional Vitals: Temp Pulse Resp BP Pulse Ox 97.7 F 70 16 134/71 100 03/09/19 06:53 03/09/19 06:53 03/09/19 06:53 03/09/19 06:53 03/09/19 06:53 General appearance: Present: cooperative, A&O X 3, pleasant, no acute distress, answers questions appropriately Exam: Gen: Alert, awake, Oriented to time,place and person Chest: Diminished breath sounds B/L, No wheezing, No crackles, No rales Heart: S1S2+ RRR No murmurs Abd: Soft, NT, BS +, No organomegaly Ext: No edema, pulses are palpable, No calf tenderness : 5 cm size swelling, indurated, mild soft swelling noticed in Rt groin with moderate tenderness and erythema. Neuro : No acute focal neuro deficits noticed Skin: No rash. - Patient Status Disposition: Left Against Medical Advice Condition: Good Overall status at discharge: patient is back to baseline - Discharge Instructions Follow Up With: Deborah Restrepo SPUD DRILLER [Primary Care Provider] - - Diet and Activity Activity: increase activity as tolerated Diet: low salt diet
[2019-03-09 11:29] LABS: Basophils % 0.3 %; Eosinophils # 0.3 K/mcL (0.0-0.6); Eosinophils % 3.5 %; Hematocrit 44.6 % (35.3-44.9); Hemoglobin 14.5 g/dL (11.5-15.4); Immature Granulocytes % 0.3 % (0-4); Lymphocytes # 2.4 K/mcL (0.6-4.6); Mean Corpuscular HGB Conc 32.5 g/dL (31.6-35.5); Mean Corpuscular Hemoglobin 27.1 pg (28.0-33.3); Mean Corpuscular Volume 83.4 fL (83.0-100.0); Mean Platelet Volume 10.3 fL (9.4-12.4); Monocytes # 0.5 K/mcL (0.0-1.3); Monocytes % 6.3 %; Neutrophils # 4.5 K/mcL (1.6-8.9); Platelet Count 248 K/mcL (140-400); Red Blood Count 5.35 M/mcL (3.82-4.97); Segmented Neutrophils % 58.6 %; White Blood Count 7.7 K/mcL (4.3-11.1)
[2019-03-09 11:48] LABS: BUN/Creatinine Ratio 8 (6-26); Blood Urea Nitrogen 5 mg/dL (6-20); Calcium 8.6 mg/dL (8.6-10.3); Carbon Dioxide 26 mEq/L (23-29); Chloride 102 mEq/L (98-107); Glucose 330 mg/dL (70-105); Magnesium 1.7 mg/dL (1.6-2.6); Osmolality,Calculated 294 (280-300); Phosphorous 2.9 mg/dL (2.7-4.5); Potassium 4.1 mEq/L (3.5-5.1); Sodium 137 mEq/L (136-145); eGFR For African Americans > 60 (> 60); eGFR For Non-African Americans > 60 (> 60)
--- NOTE | 2019-03-10 23:07 | Electrocardiograph Report ---
[employer] Test Date: 2019-03-07 Pat Name: Kaitlyn Garcia Department: [id number] Room: [facility] Gender: F Lpn Cma: : 1985 Requested By: Shahida Pennington Order Number: [id number] Reading MD: Carl Marquez Measurements Intervals [place] Rate: 76 P: 45 UT: 187 QRS: 27 QRSD: 88 T: 43 QT: 364 QTc: 410 Interpretive Statements Sinus rhythm Electronically Signed On 03-10-2019 23:05:14 EDT by Carl Marquez
== END 2019-03-09 11:50 | disposition left against medical advice (07) ==
LOC: EMEROOARM 20:27 → CDU 20:27 → SUATTDRO 03-08 00:06 → CDU 03-08 00:57
PROVIDERS: ADMIT Family Medicine; ATTEND Family Medicine

== ENCOUNTER 2021-04-14 02:05 | Inpatient (IN) ==
[2021-04-14] MEDS ORDERED: Ondansetron 4 MG/2 ML VIAL IVP ONE (02:27)
[2021-04-14] MEDS ORDERED: 0.9 % Sodium Chloride 1,000 ML IVC ONE ×4 (02:27→07:32)
[2021-04-14] MEDS ORDERED: *HR* FentaNYL (PF) 100 MCG/2 ML VIAL IVP ONE (02:27)
[2021-04-14 02:52] LABS: Basophils # 0.1 K/mcL (0.0-0.2); Basophils % 0.4 %; Eosinophils # 0.2 K/mcL (0.0-0.6); Eosinophils % 1.1 %; Hematocrit 53.6 % (35.3-44.9); Hemoglobin 17.4 g/dL (11.5-15.4); Immature Granulocytes % 0.4 % (0-4); Lymphocytes # 4.2 K/mcL (0.6-4.6); Lymphocytes % 27.7 %; Mean Corpuscular HGB Conc 32.5 g/dL (31.6-35.5); Mean Platelet Volume 9.1 fL (9.4-12.4); Monocytes # 0.9 K/mcL (0.0-1.3); Monocytes % 6.1 %; Neutrophils # 9.7 K/mcL (1.6-8.9); Platelet Count 318 K/mcL (140-400); Red Cell Distribution Width 19.9 % (11.5-14.5); Segmented Neutrophils % 64.3 %
[2021-04-14 03:14] LABS: Alanine Aminotransferase 11 Units/L (7-52); Albumin 3.9 g/dL (3.5-5.7); Alkaline Phosphatase 79 Units/L (34-104); Aspartate Amino Transferase 15 Units/L (13-39); BUN/Creatinine Ratio 16 (6-26); Bilirubin,Total 0.4 mg/dL (0.3-1.0); Blood Urea Nitrogen 17 mg/dL (6-20); Calcium 9.1 mg/dL (8.6-10.3); Carbon Dioxide 31 mEq/L (23-29); Chloride 96 mEq/L (98-107); Globulin 3.9 g/dL (2.4-3.5); Glucose 111 mg/dL (70-105); Lipase 82 Units/L (11-82); Osmolality,Calculated 284 (280-300); Potassium 4.1 mEq/L (3.5-5.1); Sodium 136 mEq/L (136-145); Total Protein 7.8 g/dL (6.4-8.9); eGFR For African Americans > 60 (> 60); eGFR For Non-African Americans 58 (> 60)
[2021-04-14] MEDS ORDERED: Isovue-370 500 ML BOTTLE IVP ONE (03:16)
[2021-04-14 03:22] LABS: Troponin I < 0.03 ng/mL (< 0.04)
[2021-04-14] MEDS ORDERED: *HR* HYDROcodone/Acet 5/325 mg TABLET PO ONE (04:07)
[2021-04-14 04:24] LABS: Influenza A PCR Negative (Negative); Influenza B PCR Negative (Negative); Resp. Syncytial Virus PCR Negative (Negative)
[2021-04-14 04:25] LABS: SARS-CoV-2 by PCR (In House) Negative (Negative)
[2021-04-14] MEDS ORDERED: cefTRIAXone 1,000 MG in Water for inj. (sterile) 10 ML IVP ONE (04:52)
[2021-04-14] MEDS ORDERED: Ipratropium/Albuterol Neb 3 ML IH ONE ×2 (06:35→07:54)
[2021-04-14] MEDS ORDERED: Azithromycin 500 MG in 0.9 % Sodium Chloride 250 ML IVPB ONE (07:24)
[2021-04-14] MEDS ORDERED: Azithromycin 500 MG VIAL ONE (07:39)
[2021-04-14] MEDS ORDERED: 0.9 % Sodium Chloride 250 ML ONE (07:40)
[2021-04-14] MEDS ORDERED: methylPREDNISolone 125 MG/2 ML VIAL IVP ONE (07:55)
[2021-04-14] MEDS ORDERED: Norepinephrine 4 MG/254 ML IV.SOLN IVC SCH (08:00)
[2021-04-14] MEDS ORDERED: Albumin Human 5% 12.5 GM/250 ML IV.SOLN IVC SCH (09:30)
[2021-04-14] MEDS ORDERED: Acetaminophen 325 MG TABLET PO PRN ×2 (10:46→19:10)
[2021-04-14] MEDS ORDERED: Naloxone 0.4 MG/ML INJ IVP PRN ×2 (10:46→19:10)
[2021-04-14] MEDS ORDERED: D5% in Water 1,000 ML IVC PRN ×2 (10:54→19:10)
[2021-04-14] MEDS ORDERED: *HR* Dextrose 50 % in Water (Vial) 50 ML VIAL IVP PRN ×2 (10:54→19:10)
[2021-04-14] MEDS ORDERED: Dextrose Gel 15 GM/37.5 ML TUBE PO PRN ×4 (10:54→19:10)
[2021-04-14] MEDS ORDERED: Vancomycin (wt based) 1,000 MG VIAL IVPB SCH (11:00)
[2021-04-14] MEDS ORDERED: cefTRIAXone 2,000 MG in Water for inj. (sterile) 10 ML IVP SCH (11:00)
[2021-04-14 12:19] LABS: Adenovirus Not Detected (Not Detect); Bordetella Pertussis Not Detected (Not Detect); Chlamydophila pneumoniae Not Detected (Not Detect); Coronavirus 229E Not Detected (Not Detect); Coronavirus HKU1 Not Detected (Not Detect); Coronavirus NL63 Not Detected (Not Detect); Coronavirus OC43 Not Detected (Not Detect); Human Metapneumovirus Not Detected (Not Detect); Human Rhinovirus/Enterovirus Not Detected (Not Detect); Influenza A Subtype 2009 H1 Not Detected (Not Detect); Influenza B Not Detected (Not Detect); Mycoplasma pneumoniae Not Detected (Not Detect); Parainfluenza Virus 1 Not Detected (Not Detect); Parainfluenza Virus 2 Not Detected (Not Detect); Parainfluenza Virus 3 Not Detected (Not Detect); Parainfluenza Virus 4 Not Detected (Not Detect); Respiratory Syncytial Virus Not Detected (Not Detect); SARS-CoV-2 Not Detected (Not Detect)
[2021-04-14] MEDS ORDERED: Vancomycin 2,000 MG/520 ML IV.SOLN IVPB SCH (13:00)
[2021-04-14] MEDS ORDERED: Albuterol 2.5 MG/3 ML NEBULIZER IH PRN ×2 (15:06→19:10)
[2021-04-14] MEDS ORDERED: Ondansetron 4 MG/2 ML VIAL IVP PRN ×2 (15:12→19:10)
[2021-04-14] MEDS: Insulin LISPRO 300 UNITS/3 ML VIAL SUBQ SCH ×4 (15:59→23:28)
[2021-04-14] MEDS ORDERED: Ipratropium/Albuterol Neb 3 ML IH SCH (16:00)
[2021-04-14] MEDS ORDERED: *HR* Heparin 5,000 UNIT/ML VIAL SQ SCH (16:00)
[2021-04-14] MEDS ORDERED: 0.9 % Sodium Chloride 1,000 ML IVC SCH (19:10)
[2021-04-14] MEDS: Gabapentin 400 MG CAPSULE PO SCH (20:36)
[2021-04-14] MEDS: QUEtiapine Fumarate 100 MG TABLET PO SCH (20:36)
[2021-04-14] MEDS: *HR* Heparin 5,000 UNIT/ML VIAL SQ SCH (20:37)
[2021-04-14] MEDS: Ipratropium/Albuterol Neb 3 ML IH SCH ×2 (20:57→23:35)
[2021-04-14] MEDS: Vancomycin 2,000 MG/520 ML IV.SOLN IVPB SCH (23:42)
[2021-04-15] MEDS: Insulin LISPRO 300 UNITS/3 ML VIAL SUBQ SCH ×5 (02:59→21:10)
[2021-04-15] MEDS: Ipratropium/Albuterol Neb 3 ML IH SCH ×6 (04:17→23:04)
[2021-04-15] MEDS: *HR* Heparin 5,000 UNIT/ML VIAL SQ SCH ×3 (05:33→21:10)
[2021-04-15] MEDS: Azithromycin 500 MG in 0.9 % Sodium Chloride 250 ML IVPB SCH (05:50)
[2021-04-15] MEDS ORDERED: Azithromycin 500 MG in 0.9 % Sodium Chloride 250 ML IVPB SCH (07:00)
[2021-04-15] MEDS: Gabapentin 400 MG CAPSULE PO SCH ×3 (07:24→21:11)
[2021-04-15] MEDS ORDERED: (Buprenorphine Hcl/Naloxone Hcl 8-2 MG) SL SCH (09:00)
[2021-04-15] MEDS ORDERED: NALOXONE HCL SL SCH (09:00)
[2021-04-15] MEDS ORDERED: BUPRENORPHINE HCL SL SCH (09:00)
[2021-04-15] MEDS ORDERED: cefTRIAXone 2,000 MG in Water for inj. (sterile) 10 ML IVP SCH (11:00)
[2021-04-15 12:34] LABS: VBG Ionized Calcium 1.14 mmol/L (1.15-1.35)
[2021-04-15 12:37] LABS: Basophils % 0.1 %; Eosinophils % 0.1 %; Hematocrit 48.5 % (35.3-44.9); Hemoglobin 15.2 g/dL (11.5-15.4); Immature Granulocytes % 0.4 % (0-4); Lymphocytes # 1.8 K/mcL (0.6-4.6); Lymphocytes % 10.8 %; Mean Corpuscular HGB Conc 31.3 g/dL (31.6-35.5); Mean Corpuscular Hemoglobin 25.2 pg (28.0-33.3); Mean Corpuscular Volume 80.6 fL (83.0-100.0); Mean Platelet Volume 9.9 fL (9.4-12.4); Monocytes # 1.1 K/mcL (0.0-1.3); Monocytes % 6.5 %; Neutrophils # 13.3 K/mcL (1.6-8.9); Platelet Count 278 K/mcL (140-400); Red Blood Count 6.02 M/mcL (3.82-4.97); Red Cell Distribution Width 19.4 % (11.5-14.5); Segmented Neutrophils % 82.1 %; White Blood Count 16.1 K/mcL (4.3-11.1)
[2021-04-15 12:55] LABS: BUN/Creatinine Ratio 17 (6-26); Blood Urea Nitrogen 12 mg/dL (6-20); Calcium 9.2 mg/dL (8.6-10.3); Carbon Dioxide 29 mEq/L (23-29); Chloride 100 mEq/L (98-107); Glucose 154 mg/dL (70-105); Magnesium 1.7 mg/dL (1.6-2.6); Osmolality,Calculated 281 (280-300); Phosphorous 2.5 mg/dL (2.7-4.5); Potassium 4.6 mEq/L (3.5-5.1); Sodium 134 mEq/L (136-145); eGFR For African Americans > 60 (> 60); eGFR For Non-African Americans > 60 (> 60)
[2021-04-15] MEDS: Vancomycin 2,000 MG/520 ML IV.SOLN IVPB SCH (13:35)
[2021-04-15] MEDS: BUPRENORPHINE SL SCH (16:54)
[2021-04-15] MEDS: *HR* Metformin 500 MG TABLET PO SCH (16:54)
[2021-04-15] MEDS: QUEtiapine Fumarate 100 MG TABLET PO SCH (21:11)
[2021-04-15] MEDS: tiZANidine 4 MG TABLET PO PRN (21:12)
[2021-04-16 00:52] LABS: Basophils % 0.1 %; Eosinophils % 0.1 %; Hematocrit 46.3 % (35.3-44.9); Immature Granulocytes % 0.2 % (0-4); Lymphocytes # 2.4 K/mcL (0.6-4.6); Lymphocytes % 14.2 %; Mean Corpuscular HGB Conc 32.4 g/dL (31.6-35.5); Mean Corpuscular Hemoglobin 25.6 pg (28.0-33.3); Mean Corpuscular Volume 79.1 fL (83.0-100.0); Mean Platelet Volume 9.8 fL (9.4-12.4); Monocytes % 6.2 %; Neutrophils # 13.1 K/mcL (1.6-8.9); Platelet Count 245 K/mcL (140-400); Red Blood Count 5.85 M/mcL (3.82-4.97); Red Cell Distribution Width 19.3 % (11.5-14.5); Segmented Neutrophils % 79.2 %; White Blood Count 16.5 K/mcL (4.3-11.1)
[2021-04-16 01:13] LABS: BUN/Creatinine Ratio 17 (6-26); Blood Urea Nitrogen 12 mg/dL (6-20); Carbon Dioxide 24 mEq/L (23-29); Chloride 96 mEq/L (98-107); Glucose 280 mg/dL (70-105); Osmolality,Calculated 278 (280-300); Phosphorous 2.3 mg/dL (2.7-4.5); Potassium 4.3 mEq/L (3.5-5.1); Sodium 129 mEq/L (136-145); eGFR For African Americans > 60 (> 60); eGFR For Non-African Americans > 60 (> 60)
[2021-04-16] MEDS: Ipratropium/Albuterol Neb 3 ML IH SCH ×2 (03:58→07:54)
[2021-04-16] MEDS ORDERED: 0.9 % Sodium Chloride 250 ML ONE (05:58)
[2021-04-16] MEDS: *HR* Heparin 5,000 UNIT/ML VIAL SQ SCH (06:05)
[2021-04-16] MEDS: Azithromycin 500 MG in 0.9 % Sodium Chloride 250 ML IVPB SCH (06:06)
[2021-04-16 06:48] VITALS: BP 126/83; PULSE 107; TEMP 98.5; O2SAT 93
[2021-04-16] MEDS ORDERED: Insulin LISPRO 300 UNITS/3 ML VIAL SUBQ SCH ×2 (07:30→21:00)
[2021-04-16] MEDS: Gabapentin 400 MG CAPSULE PO SCH (08:32)
[2021-04-16] MEDS: *HR* Metformin 500 MG TABLET PO SCH (08:32)
[2021-04-16] MEDS: BUPRENORPHINE SL SCH (08:32)
[2021-04-16] MEDS: tiZANidine 4 MG TABLET PO PRN (08:47)
[2021-04-16] MEDS ORDERED: levoFLOXacin 750 MG TABLET PO SCH (09:00)
== END 2021-04-16 09:58 | disposition home or self-care (01) | DRG 720 ==
LOC: EMEROOARM 02:05 → ICNU 13:21 → SUATTDRO 13:21 → ICNU 14:32 → 2ANU 04-15 13:05
PROVIDERS: ADMIT Pediatrics; ATTEND Internal Medicine

== ENCOUNTER 2021-11-08 20:48 | Inpatient (IN) ==
[2021-11-08] MEDS ORDERED: 0.9 % Sodium Chloride 1,000 ML IVC ONE (21:28)
[2021-11-08 23:20] LABS: Basophils % 0.2 %; Eosinophils # 0.2 K/mcL (0.0-0.6); Eosinophils % 1.6 %; Hematocrit 44.8 % (35.3-44.9); Hemoglobin 14.4 g/dL (11.5-15.4); Immature Granulocytes % 0.5 % (0-4); Lymphocytes % 13.8 %; Mean Corpuscular HGB Conc 32.1 g/dL (31.6-35.5); Mean Corpuscular Hemoglobin 27.2 pg (28.0-33.3); Mean Corpuscular Volume 84.7 fL (83.0-100.0); Mean Platelet Volume 9.5 fL (9.4-12.4); Monocytes # 1.1 K/mcL (0.0-1.3); Monocytes % 7.1 %; Neutrophils # 11.3 K/mcL (1.6-8.9); Platelet Count 227 K/mcL (140-400); Red Blood Count 5.29 M/mcL (3.82-4.97); Red Cell Distribution Width 19.2 % (11.5-14.5); Segmented Neutrophils % 76.8 %; White Blood Count 14.7 K/mcL (4.3-11.1)
[2021-11-08 23:42] LABS: Alanine Aminotransferase 7 Units/L (7-52); Albumin 3.5 g/dL (3.5-5.7); Alkaline Phosphatase 78 Units/L (34-104); Aspartate Amino Transferase 11 Units/L (13-39); BUN/Creatinine Ratio 24 (6-26); Bilirubin,Total 0.4 mg/dL (0.3-1.0); Blood Urea Nitrogen 42 mg/dL (6-20); Calcium 8.7 mg/dL (8.6-10.3); Carbon Dioxide 31 mEq/L (23-29); Chloride 95 mEq/L (98-107); Ethanol < 10 mg/dL (Less than 10); Globulin 3.5 g/dL (2.4-3.5); Glucose 67 mg/dL (70-105); Magnesium 2.1 mg/dL (1.6-2.6); Osmolality,Calculated 287 (280-300); Sodium 134 mEq/L (136-145); eGFR For African Americans 41 (> 60); eGFR For Non-African Americans 34 (> 60)
[2021-11-08] MEDS ORDERED: *HR* Dextrose 50 % in Water (Syg) 50 ML SYRINGE IVP ONE (23:43)
[2021-11-09] MEDS ORDERED: methylPREDNISolone 125 MG/2 ML VIAL IVP ONE (00:17)
[2021-11-09] MEDS ORDERED: Ipratropium/Albuterol Neb 3 ML IH ONE ×2 (00:17→12:47)
[2021-11-09] MEDS ORDERED: Albuterol 2.5 MG/3 ML NEBULIZER IH ONE (01:15)
[2021-11-09 01:21] LABS: Adenovirus Not Detected (Not Detect); Bordetella Pertussis Not Detected (Not Detect); Chlamydophila pneumoniae Not Detected (Not Detect); Coronavirus 229E Not Detected (Not Detect); Coronavirus HKU1 Not Detected (Not Detect); Coronavirus NL63 Not Detected (Not Detect); Coronavirus OC43 Not Detected (Not Detect); Human Metapneumovirus Not Detected (Not Detect); Human Rhinovirus/Enterovirus Not Detected (Not Detect); Influenza A Subtype 2009 H1 Not Detected (Not Detect); Influenza B Not Detected (Not Detect); Mycoplasma pneumoniae Not Detected (Not Detect); Parainfluenza Virus 1 Not Detected (Not Detect); Parainfluenza Virus 2 Not Detected (Not Detect); Parainfluenza Virus 3 Not Detected (Not Detect); Parainfluenza Virus 4 Not Detected (Not Detect); Respiratory Syncytial Virus Not Detected (Not Detect); SARS-CoV-2 Not Detected (Not Detect)
[2021-11-09 02:17] LABS: VBG HCO3 31 mEq/L (21-27); VBG PCO2 66 mmHg (41-51); VBG PH 7.28 pH Units (7.32-7.42); VBG PO2 49 mmHg (25-50)
[2021-11-09 02:49] LABS: VBG HCO3 27 mEq/L (21-27); VBG PCO2 48 mmHg (41-51); VBG PH 7.36 pH Units (7.32-7.42); VBG PO2 40 mmHg (25-50)
[2021-11-09] MEDS ORDERED: Ondansetron 4 MG/2 ML VIAL IVP PRN (02:53)
[2021-11-09] MEDS ORDERED: Naloxone 0.4 MG/ML INJ IVP PRN (02:53)
[2021-11-09] MEDS ORDERED: Acetaminophen 325 MG TABLET PO PRN (02:53)
[2021-11-09] MEDS ORDERED: Melatonin 3 MG TABLET PO PRN (02:53)
[2021-11-09] MEDS ORDERED: D5% in Water 1,000 ML IVC PRN (02:57)
[2021-11-09] MEDS ORDERED: Dextrose 4 GM Chewable Tablets PO PRN ×2 (02:57)
[2021-11-09] MEDS ORDERED: *HR* Dextrose 50 % in Water (Syg) 50 ML SYRINGE IVP PRN (02:57)
[2021-11-09] MEDS ORDERED: Ringers Solution, Lactated 1,000 ML IVC SCH (03:00)
[2021-11-09] MEDS ORDERED: Azithromycin 500 MG in 0.9 % Sodium Chloride 250 ML IVPB SCH (04:00)
[2021-11-09 04:35] LABS: Basophils % 0.2 %; Eosinophils % 0.3 %; Hemoglobin 14.1 g/dL (11.5-15.4); Immature Granulocytes % 0.6 % (0-4); Lymphocytes # 0.8 K/mcL (0.6-4.6); Lymphocytes % 5.4 %; Mean Corpuscular Volume 84.1 fL (83.0-100.0); Mean Platelet Volume 9.6 fL (9.4-12.4); Monocytes # 0.3 K/mcL (0.0-1.3); Neutrophils # 14.1 K/mcL (1.6-8.9); Platelet Count 205 K/mcL (140-400); Red Blood Count 5.23 M/mcL (3.82-4.97); Red Cell Distribution Width 18.9 % (11.5-14.5); Segmented Neutrophils % 91.5 %; White Blood Count 15.4 K/mcL (4.3-11.1)
[2021-11-09] MEDS: *HR* Heparin 5,000 UNIT/ML VIAL SQ SCH ×2 (04:41→13:25)
[2021-11-09 04:47] LABS: INR 1.2; Prothrombin Time 13.1 Seconds (9.4-12.1)
[2021-11-09 05:19] LABS: Albumin 3.7 g/dL (3.5-5.7); Albumin/Globulin Ratio 1.1 (1.1-2.2); Bilirubin,Total 0.5 mg/dL (0.3-1.0); Calcium 8.5 mg/dL (8.6-10.3); Globulin 3.4 g/dL (2.4-3.5); Potassium 5.3 mEq/L (3.5-5.1); Total Protein 7.1 g/dL (6.4-8.9)
[2021-11-09] MEDS ORDERED: SODIUM ZIRCONIUM CYCLOSILICATE 5 GM POWD.PACK PO ONE ×3 (06:10→08:45)
[2021-11-09 06:39] LABS: Bilirubin,Urine Negative (Negative); Blood,Urine Trace (Negative); Clarity,Urine Clear (Clear); Color,Urine Dark-Yellow (Yellow); Glucose,Urine (UA) Normal (Normal); Ketones,Urine Negative (Negative); Leukocyte Esterase,Urine Negative (Negative); Nitrite,Urine Negative (Negative); PH,Urine 5.5 pH Units (5.0-8.0); Protein,Urine Trace mg/dL (Neg-Trace); Specific Gravity,Urine 1.018 (1.010-1.025); Urobilinogen,Urine Normal (Normal)
[2021-11-09 08:25] LABS: Protein/Creatinine Ratio,Urine 0.11 mg/mg (0.00-0.20); Sodium, Urine 20.8 mEq/L
[2021-11-09] MEDS: Insulin LISPRO 300 UNITS/3 ML VIAL SUBQ SCH ×3 (08:48→15:59)
[2021-11-09] MEDS ORDERED: cefTRIAXone 1,000 MG in 0.9 % Sodium Chloride 10 ML IVP SCH (09:00)
[2021-11-09] MEDS ORDERED: Ipratropium/Albuterol Neb 3 ML IH PRN (12:47)
[2021-11-09 13:41] LABS: Calcium 8.8 mg/dL (8.6-10.3); Potassium 5.1 mEq/L (3.5-5.1)
[2021-11-09] MEDS: Ipratropium/Albuterol Neb 3 ML IH SCH ×2 (14:12→20:21)
[2021-11-09 15:35] VITALS: BP 133/79; PULSE 75; TEMP 98.1
[2021-11-09 20:26] VITALS: O2SAT 95
[2021-11-09] MEDS ORDERED: Insulin DETEMIR 100 UNIT/ML X5UNITS SUBQ SCH (21:00)
[2021-11-09] MEDS ORDERED: Insulin LISPRO 300 UNITS/3 ML VIAL SUBQ SCH (21:00)
[2021-11-10] MEDS ORDERED: Azithromycin 250 MG TABLET PO SCH (09:00)
== END 2021-11-09 21:30 | disposition left against medical advice (07) | DRG 720 ==
LOC: 2NENU 20:48 → EMEROOARM 20:48 → SUATTDRO 11-09 02:24 → 2NENU 11-09 02:29
PROVIDERS: ADMIT Internal Medicine; ATTEND Internal Medicine

== ENCOUNTER 2022-01-31 21:03 | Inpatient (IN) ==
[2022-01-31] MEDS ORDERED: Isovue-370 500 ML BOTTLE IVP ONE (21:32)
[2022-01-31] MEDS ORDERED: *HR* HYDROmorphone (PF) 1 MG/ML SYRINGE IVP ONE (21:33)
[2022-01-31] MEDS ORDERED: Ipratropium/Albuterol Neb 3 ML IH ONE (22:01)
[2022-01-31] MEDS ORDERED: cefTRIAXone 1,000 MG in 0.9 % Sodium Chloride 10 ML IVP ONE (22:06)
[2022-01-31] MEDS ORDERED: Azithromycin 500 MG in 0.9 % Sodium Chloride 250 ML IVPB ONE (22:06)
[2022-01-31] MEDS ORDERED: Fluconazole 150 MG TABLET PO ONE (22:06)
[2022-01-31 22:17] LABS: Basophils % 0.3 %; Eosinophils # 0.4 K/mcL (0.0-0.6); Eosinophils % 2.9 %; Hematocrit 47.3 % (35.3-44.9); Hemoglobin 15.9 g/dL (11.5-15.4); Immature Granulocytes % 0.3 % (0-4); Lymphocytes # 2.9 K/mcL (0.6-4.6); Lymphocytes % 20.4 %; Mean Corpuscular HGB Conc 33.6 g/dL (31.6-35.5); Mean Corpuscular Hemoglobin 27.7 pg (28.0-33.3); Mean Corpuscular Volume 82.3 fL (83.0-100.0); Monocytes # 0.7 K/mcL (0.0-1.3); Monocytes % 4.7 %; Platelet Count 273 K/mcL (140-400); Red Blood Count 5.75 M/mcL (3.82-4.97); Red Cell Distribution Width 14.8 % (11.5-14.5); Segmented Neutrophils % 71.4 %
[2022-01-31 22:20] LABS: VBG HCO3 28 mEq/L (21-27); VBG PCO2 50 mmHg (41-51); VBG PH 7.36 pH Units (7.32-7.42); VBG PO2 61 mmHg (25-50)
[2022-01-31 22:24] LABS: Prothrombin Time 10.9 Seconds (9.4-12.1)
[2022-01-31 22:27] LABS: Activated Partial Thrombo Time 31.9 Seconds (26.0-36.0)
[2022-01-31 22:38] LABS: Alanine Aminotransferase 8 Units/L (7-52); Albumin 3.5 g/dL (3.5-5.7); Alkaline Phosphatase 91 Units/L (34-104); Aspartate Amino Transferase 10 Units/L (13-39); BUN/Creatinine Ratio 23 (6-26); Bilirubin,Direct 0.1 mg/dL (0.0-0.2); Bilirubin,Indirect 0.2 mg/dL (0.0-1.0); Bilirubin,Total 0.3 mg/dL (0.3-1.0); Blood Urea Nitrogen 16 mg/dL (6-20); Calcium 8.8 mg/dL (8.6-10.3); Carbon Dioxide 26 mEq/L (23-29); Chloride 99 mEq/L (98-107); Globulin 3.6 g/dL (2.4-3.5); Glucose 260 mg/dL (70-105); Osmolality,Calculated 286 (280-300); Potassium 4.2 mEq/L (3.5-5.1); Sodium 133 mEq/L (136-145); Total Protein 7.1 g/dL (6.4-8.9); eGFR For African Americans > 60 (> 60); eGFR For Non-African Americans > 60 (> 60)
[2022-01-31 22:39] LABS: Troponin I < 0.03 ng/mL (< 0.04)
[2022-01-31] MEDS ORDERED: diazePAM 10 MG/2 ML SYRINGE IVP ONE (23:01)
[2022-01-31 23:03] LABS: Adenovirus Not Detected (Not Detect); Coronavirus 229E Not Detected (Not Detect); Coronavirus HKU1 Not Detected (Not Detect); Coronavirus NL63 Not Detected (Not Detect); Coronavirus OC43 Not Detected (Not Detect); Human Metapneumovirus Not Detected (Not Detect); Human Rhinovirus/Enterovirus Not Detected (Not Detect); Influenza A Subtype 2009 H1 Not Detected (Not Detect); Influenza B Not Detected (Not Detect); Parainfluenza Virus 1 Not Detected (Not Detect); Parainfluenza Virus 2 Not Detected (Not Detect); Parainfluenza Virus 3 Not Detected (Not Detect); Parainfluenza Virus 4 Not Detected (Not Detect); Respiratory Syncytial Virus Not Detected (Not Detect); SARS-CoV-2 Not Detected (Not Detect)
[2022-01-31 23:04] LABS: Bordetella Pertussis Not Detected (Not Detect); Chlamydophila pneumoniae Not Detected (Not Detect); Mycoplasma pneumoniae Not Detected (Not Detect)
[2022-02-01 01:51] LABS: Bacteria,Urine Few per hpf (None-Few); Bilirubin,Urine Negative (Negative); Blood,Urine Trace (Negative); Clarity,Urine Clear (Clear); Color,Urine Light-Yellow (Yellow); Glucose,Urine (UA) 100 mg/dL (Normal); Ketones,Urine Negative (Negative); Leukocyte Esterase,Urine Moderate (Negative); Mucus,Urine Few per lpf (None-Few); Nitrite,Urine Negative (Negative); Protein,Urine Negative (Neg-Trace); Specific Gravity,Urine > 1.030 (1.010-1.025); Squamous Epithelial Cell,Urine Few per hpf (None-Few); Urobilinogen,Urine Normal (Normal)
[2022-02-01] MEDS ORDERED: Ondansetron 4 MG/2 ML VIAL IVP PRN (01:56)
[2022-02-01] MEDS ORDERED: Acetaminophen 325 MG TABLET PO PRN (01:56)
[2022-02-01] MEDS ORDERED: *HR* OxyCODONE Immed Rel 5 MG TABLET PO PRN (01:56)
[2022-02-01] MEDS ORDERED: *HR* Promethazine 25 MG/ML VIAL IM PRN (01:56)
[2022-02-01] MEDS ORDERED: *HR* HYDROcodone/Acet 5/325 mg TABLET PO PRN (01:56)
[2022-02-01] MEDS ORDERED: Naloxone 0.4 MG/ML INJ IVP PRN (01:56)
[2022-02-01] MEDS ORDERED: Melatonin 3 MG TABLET PO PRN (01:56)
[2022-02-01] MEDS ORDERED: Dextrose Gel 15 GM/37.5 ML TUBE PO PRN ×2 (02:02)
[2022-02-01] MEDS ORDERED: *HR* Dextrose 50 % in Water (Syg) 50 ML SYRINGE IVP PRN (02:02)
[2022-02-01] MEDS ORDERED: D5% in Water 1,000 ML IVC PRN (02:02)
[2022-02-01] MEDS ORDERED: Ipratropium/Albuterol Neb 3 ML IH PRN (02:03)
[2022-02-01] MEDS ORDERED: diazePAM 10 MG/2 ML SYRINGE IVP STA (02:27)
[2022-02-01] MEDS: Ipratropium/Albuterol Neb 3 ML IH SCH ×4 (03:29→15:16)
[2022-02-01 04:32] VITALS: TEMP 97.6
[2022-02-01 05:55] LABS: Basophils % 0.3 %; Eosinophils # 0.4 K/mcL (0.0-0.6); Eosinophils % 3.4 %; Hematocrit 47.3 % (35.3-44.9); Hemoglobin 15.6 g/dL (11.5-15.4); Immature Granulocytes % 0.3 % (0-4); Lymphocytes # 2.8 K/mcL (0.6-4.6); Lymphocytes % 22.9 %; Mean Corpuscular Hemoglobin 27.6 pg (28.0-33.3); Mean Corpuscular Volume 83.7 fL (83.0-100.0); Mean Platelet Volume 10.5 fL (9.4-12.4); Monocytes # 0.7 K/mcL (0.0-1.3); Monocytes % 5.8 %; Neutrophils # 8.1 K/mcL (1.6-8.9); Platelet Count 253 K/mcL (140-400); Red Blood Count 5.65 M/mcL (3.82-4.97); Red Cell Distribution Width 14.7 % (11.5-14.5); Segmented Neutrophils % 67.3 %
[2022-02-01 06:03] LABS: INR 1.1; Prothrombin Time 11.7 Seconds (9.4-12.1)
[2022-02-01 06:13] LABS: BUN/Creatinine Ratio 20 (6-26); Blood Urea Nitrogen 13 mg/dL (6-20); Calcium 8.9 mg/dL (8.6-10.3); Carbon Dioxide 29 mEq/L (23-29); Chloride 99 mEq/L (98-107); Glucose 195 mg/dL (70-105); Magnesium 1.6 mg/dL (1.6-2.6); Osmolality,Calculated 283 (280-300); Potassium 4.1 mEq/L (3.5-5.1); Sodium 134 mEq/L (136-145); eGFR For African Americans > 60 (> 60); eGFR For Non-African Americans > 60 (> 60)
[2022-02-01 07:27] VITALS: BP 124/83; PULSE 83
[2022-02-01] MEDS ORDERED: Insulin LISPRO 300 UNITS/3 ML VIAL SUBQ SCH ×2 (07:30→21:00)
[2022-02-01] MEDS ORDERED: levoFLOXacin 750 MG TABLET PO SCH (09:00)
[2022-02-01] MEDS ORDERED: Sennosides/Docusate Sodium TABLET PO SCH (09:00)
[2022-02-01] MEDS ORDERED: cefTRIAXone 1,000 MG in Water for inj. (sterile) 10 ML IVP SCH (09:00)
[2022-02-01] MEDS ORDERED: Furosemide 20 MG/2 ML VIAL IVP SCH (09:00)
[2022-02-01 14:02] VITALS: O2SAT 88
[2022-02-01] MEDS ORDERED: Azithromycin 500 MG in 0.9 % Sodium Chloride 250 ML IVPB SCH (18:00)
[2022-02-01] MEDS ORDERED: Insulin DETEMIR 100 UNIT/ML X5UNITS SUBQ SCH (21:00)
== END 2022-02-01 09:50 | disposition left against medical advice (07) | DRG 139 ==
LOC: 3NENU 21:03 → EMEROOARM 21:03 → SUATTDRO 02-01 01:59 → 3NENU 02-01 03:28
PROVIDERS: ADMIT Internal Medicine; ATTEND Internal Medicine

== ENCOUNTER 2022-02-03 13:51 | Observation (INO) ==
[2022-02-03] MEDS ORDERED: diazePAM 10 MG/2 ML SYRINGE IVP ONE (14:12)
[2022-02-03 14:33] LABS: Basophils % 0.3 %; Eosinophils # 0.5 K/mcL (0.0-0.6); Eosinophils % 4.4 %; Hematocrit 45.3 % (35.3-44.9); Immature Granulocytes % 0.4 % (0-4); Lymphocytes # 2.6 K/mcL (0.6-4.6); Lymphocytes % 22.6 %; Mean Corpuscular HGB Conc 33.1 g/dL (31.6-35.5); Mean Corpuscular Volume 84.7 fL (83.0-100.0); Mean Platelet Volume 10.1 fL (9.4-12.4); Monocytes # 0.7 K/mcL (0.0-1.3); Monocytes % 6.3 %; Neutrophils # 7.5 K/mcL (1.6-8.9); Platelet Count 308 K/mcL (140-400); Red Blood Count 5.35 M/mcL (3.82-4.97); Red Cell Distribution Width 14.8 % (11.5-14.5); White Blood Count 11.4 K/mcL (4.3-11.1)
[2022-02-03 14:40] LABS: Prothrombin Time 11.5 Seconds (9.4-12.1)
[2022-02-03 14:44] LABS: Activated Partial Thrombo Time 27.8 Seconds (26.0-36.0)
[2022-02-03 14:55] LABS: Alanine Aminotransferase 10 Units/L (7-52); Albumin 3.5 g/dL (3.5-5.7); Albumin/Globulin Ratio 1.1 (1.1-2.2); Alkaline Phosphatase 110 Units/L (34-104); Aspartate Amino Transferase 12 Units/L (13-39); BUN/Creatinine Ratio 25 (6-26); Bilirubin,Direct 0.1 mg/dL (0.0-0.2); Bilirubin,Indirect 0.2 mg/dL (0.0-1.0); Bilirubin,Total 0.3 mg/dL (0.3-1.0); Blood Urea Nitrogen 26 mg/dL (6-20); Calcium 8.5 mg/dL (8.6-10.3); Carbon Dioxide 29 mEq/L (23-29); Chloride 95 mEq/L (98-107); Globulin 3.3 g/dL (2.4-3.5); Glucose 288 mg/dL (70-105); Osmolality,Calculated 289 (280-300); Sodium 132 mEq/L (136-145); Total Protein 6.8 g/dL (6.4-8.9); eGFR For African Americans > 60 (> 60); eGFR For Non-African Americans > 60 (> 60)
[2022-02-03 14:56] LABS: Troponin I < 0.03 ng/mL (< 0.04)
[2022-02-03 15:10] LABS: VBG HCO3 29 mEq/L (21-27); VBG PCO2 56 mmHg (41-51); VBG PH 7.32 pH Units (7.32-7.42); VBG PO2 120 mmHg (25-50)
[2022-02-03 15:26] LABS: Adenovirus Not Detected (Not Detect); Bordetella Pertussis Not Detected (Not Detect); Chlamydophila pneumoniae Not Detected (Not Detect); Coronavirus 229E Not Detected (Not Detect); Coronavirus HKU1 Not Detected (Not Detect); Coronavirus NL63 Not Detected (Not Detect); Coronavirus OC43 Not Detected (Not Detect); Human Metapneumovirus Not Detected (Not Detect); Human Rhinovirus/Enterovirus Not Detected (Not Detect); Influenza A Subtype 2009 H1 Not Detected (Not Detect); Influenza B Not Detected (Not Detect); Mycoplasma pneumoniae Not Detected (Not Detect); Parainfluenza Virus 1 Not Detected (Not Detect); Parainfluenza Virus 2 Not Detected (Not Detect); Parainfluenza Virus 3 Not Detected (Not Detect); Parainfluenza Virus 4 Not Detected (Not Detect); Respiratory Syncytial Virus Not Detected (Not Detect); SARS-CoV-2 Not Detected (Not Detect)
[2022-02-03] MEDS ORDERED: *HR* HYDROcodone/Acet 5/325 mg TABLET PO PRN (16:43)
[2022-02-03] MEDS ORDERED: Acetaminophen 325 MG TABLET PO PRN (16:43)
[2022-02-03] MEDS ORDERED: Dextrose Gel 15 GM/37.5 ML TUBE PO PRN ×2 (16:43)
[2022-02-03] MEDS ORDERED: D5% in Water 1,000 ML IVC PRN (16:43)
[2022-02-03] MEDS ORDERED: Naloxone 0.4 MG/ML INJ IVP PRN (16:43)
[2022-02-03] MEDS ORDERED: *HR* Dextrose 50 % in Water (Syg) 50 ML SYRINGE IVP PRN (16:43)
[2022-02-03] MEDS ORDERED: Ondansetron 4 MG/2 ML VIAL IVP PRN (16:43)
[2022-02-03] MEDS ORDERED: polyethylene glycoL 3350 17 GM POWD.PACK PO PRN (17:52)
[2022-02-03] MEDS: *HR* Heparin 5,000 UNIT/ML VIAL SQ SCH (18:18)
[2022-02-03] MEDS: Cefepime HCl 2,000 MG in 0.9 % Sodium Chloride 20 ML IVP SCH (18:19)
[2022-02-03] MEDS: Azithromycin 500 MG in 0.9 % Sodium Chloride 250 ML IVPB SCH (18:19)
[2022-02-03] MEDS: tiZANidine 4 MG TABLET PO SCH (22:16)
[2022-02-03] MEDS: Gabapentin 300 MG CAPSULE PO SCH (22:16)
[2022-02-03] MEDS: hydrOXYzine pamoate 25 MG CAPSULE PO SCH (22:16)
[2022-02-03] MEDS: Insulin DETEMIR 100 UNIT/ML X5UNITS SUBQ SCH (22:17)
[2022-02-03] MEDS: lisinopriL 10 MG TABLET PO SCH (22:17)
[2022-02-03] MEDS: Sennosides/Docusate Sodium TABLET PO SCH (22:17)
[2022-02-03] MEDS: QUEtiapine Fumarate 100 MG TABLET PO SCH (22:17)
[2022-02-03] MEDS: diazePAM 2 MG TABLET PO PRN (22:23)
[2022-02-04] MEDS: Cefepime HCl 2,000 MG in 0.9 % Sodium Chloride 20 ML IVP SCH ×3 (02:45→17:15)
[2022-02-04 03:14] LABS: Basophils # 0.1 K/mcL (0.0-0.2); Basophils % 0.5 %; Eosinophils # 0.6 K/mcL (0.0-0.6); Eosinophils % 5.2 %; Hematocrit 43.2 % (35.3-44.9); Hemoglobin 13.9 g/dL (11.5-15.4); Immature Granulocytes % 0.3 % (0-4); Lymphocytes # 2.8 K/mcL (0.6-4.6); Lymphocytes % 26.9 %; Mean Corpuscular HGB Conc 32.2 g/dL (31.6-35.5); Mean Corpuscular Hemoglobin 27.4 pg (28.0-33.3); Mean Corpuscular Volume 85.2 fL (83.0-100.0); Mean Platelet Volume 10.1 fL (9.4-12.4); Monocytes # 0.8 K/mcL (0.0-1.3); Monocytes % 7.9 %; Neutrophils # 6.2 K/mcL (1.6-8.9); Platelet Count 275 K/mcL (140-400); Red Blood Count 5.07 M/mcL (3.82-4.97); Red Cell Distribution Width 14.7 % (11.5-14.5); Segmented Neutrophils % 59.2 %; White Blood Count 10.5 K/mcL (4.3-11.1)
[2022-02-04 03:33] LABS: BUN/Creatinine Ratio 27 (6-26); Blood Urea Nitrogen 31 mg/dL (6-20); Calcium 8.4 mg/dL (8.6-10.3); Carbon Dioxide 28 mEq/L (23-29); Chloride 98 mEq/L (98-107); Glucose 269 mg/dL (70-105); Magnesium 1.8 mg/dL (1.6-2.6); Osmolality,Calculated 288 (280-300); Phosphorous 4.7 mg/dL (2.7-4.5); Potassium 4.9 mEq/L (3.5-5.1); Sodium 131 mEq/L (136-145); eGFR For African Americans > 60 (> 60); eGFR For Non-African Americans 55 (> 60)
[2022-02-04] MEDS: Ipratropium/Albuterol Neb 3 ML IH SCH ×5 (04:04→21:01)
[2022-02-04] MEDS: *HR* Heparin 5,000 UNIT/ML VIAL SQ SCH ×2 (05:46→17:08)
[2022-02-04] MEDS ORDERED: RAMELTEON 8 MG PO SCH (09:00)
[2022-02-04] MEDS: Gabapentin 300 MG CAPSULE PO SCH ×3 (09:02→21:52)
[2022-02-04] MEDS: Sennosides/Docusate Sodium TABLET PO SCH ×2 (09:02→21:51)
[2022-02-04] MEDS: QUEtiapine Fumarate 100 MG TABLET PO SCH ×2 (09:02→21:56)
[2022-02-04] MEDS: Torsemide 20 MG TABLET PO SCH (09:02)
[2022-02-04] MEDS: hydrOXYzine pamoate 25 MG CAPSULE PO SCH ×2 (09:02→21:56)
[2022-02-04] MEDS: Insulin LISPRO 300 UNITS/3 ML VIAL SUBQ SCH ×3 (09:03→17:10)
[2022-02-04] MEDS: tiZANidine 4 MG TABLET PO SCH ×2 (09:04→21:56)
[2022-02-04] MEDS: lisinopriL 10 MG TABLET PO SCH ×2 (09:04→21:50)
[2022-02-04] MEDS: Metoprolol XL (24 HR) Succ 50 MG TAB.ER.24H PO SCH (09:04)
[2022-02-04] MEDS: diazePAM 2 MG TABLET PO PRN ×2 (09:08→21:52)
[2022-02-04] MEDS: Azithromycin 500 MG in 0.9 % Sodium Chloride 250 ML IVPB SCH (17:09)
[2022-02-04] MEDS: Insulin DETEMIR 100 UNIT/ML X5UNITS SUBQ SCH (21:56)
[2022-02-05] MEDS: Cefepime HCl 2,000 MG in 0.9 % Sodium Chloride 20 ML IVP SCH (02:02)
[2022-02-05] MEDS: Ipratropium/Albuterol Neb 3 ML IH SCH (04:12)
[2022-02-05] MEDS: diazePAM 2 MG TABLET PO PRN (05:02)
[2022-02-05] MEDS: *HR* Heparin 5,000 UNIT/ML VIAL SQ SCH (05:04)
[2022-02-05 06:56] VITALS: BP 125/89; PULSE 95; TEMP 98; O2SAT 92
[2022-02-05] MEDS: QUEtiapine Fumarate 100 MG TABLET PO SCH (07:38)
[2022-02-05] MEDS: Insulin LISPRO 300 UNITS/3 ML VIAL SUBQ SCH (07:38)
[2022-02-05] MEDS: Gabapentin 300 MG CAPSULE PO SCH (07:38)
[2022-02-05] MEDS: hydrOXYzine pamoate 25 MG CAPSULE PO SCH (07:38)
[2022-02-05] MEDS: Torsemide 20 MG TABLET PO SCH (07:38)
[2022-02-05] MEDS: Metoprolol XL (24 HR) Succ 50 MG TAB.ER.24H PO SCH (07:38)
[2022-02-05] MEDS: tiZANidine 4 MG TABLET PO SCH (07:38)
[2022-02-05] MEDS: Sennosides/Docusate Sodium TABLET PO SCH (07:38)
[2022-02-05] MEDS: lisinopriL 10 MG TABLET PO SCH (07:38)
== END 2022-02-05 07:50 | disposition left against medical advice (07) ==
LOC: EMEROOARM 13:51 → 3NENU 13:51
PROVIDERS: ADMIT Hospitalist; ATTEND Hospitalist